=== PATIENT | male | born 1970 | race Caucasian/White ===

== ENCOUNTER 2016-10-22 12:23 | Inpatient (IN) | payer OTHER, MEDICARE ==
[~2016-10-22] VITALS: Ht 180.3 cm; Wt 91.3 kg
[~2016-10-22 12:23] MED LIST: BENADRYL ALLERG25 M1 PO; BENZTROPINE1 MG PO; DEPAKOTE ER 25250 MG PO; DEPAKOTE500 MG PO; FLUPHENAZINE HCL1 MG PO; LEVOTHROID0.125 MG PO; LEVOTHYROXIN0.125 MG PO; LEVOTHYROXINE0.1 M1 PO; OLANZAPINE15 MG PO; OLANZAPINE20 MG PO; PROLIXIN DEC25 MG/ML IM
--- NOTE | 2016-10-22 12:30 | NUR ---
PT BIBA FOR PSYCH EVAL. PT ON PEER FOR ODD BEHAVIOR. PER PD, PT WAS YELLING AT NEIGHBORS AND "THREATENING TO MURIEL" THEM. PT PRESENTS WITH DISORGANIZED AND RAMBLING SPEECH. PT REQUIRED FREQUENT REDIRECTION TO CHANGE HIS CLOTHES INTO BLUE SCRUBS. PT ASKING ABOUT HIS MEDICATIONS AND WHAT THE CORRECT DOSAGE IS. SECURITY AT BEDSIDE PT CHANGED INTO BLUE SCRUBS
--- NOTE | 2016-10-22 12:30 | NUR ---
ORINGINAL PEC PLACED IN LOCKED BOX.
--- NOTE | 2016-10-22 13:10 | NUR ---
DR BILLS AT BEDSIDE
--- NOTE | 2016-10-22 13:13 | ED PSYCHIATRIC COMPLAINT ---
History of Present Illness General Chief Complaint: Psychiatric Related Complaint Stated Complaint: BIBA ON PEER, PSYCH EVAL Source: patient, old records, EMS, police Exam Limitations: clinical condition Vital Signs & Intake/Output Vital Signs & Intake/Output Vital Signs Date Time Temp Pulse Resp B/P B/P Pulse O2 O2 Flow FiO2 Mean Ox Delivery Rate 10/22 1325 Room Air 10/22 1238 95.6 114 16 133/76 94 Room Air Allergies Coded Allergies: fluphenazine (DECREASES THRESHOLD FOR SEIZURES PER AN MD 10/22/16) haloperidol (SOB 10/22/16) Reconcile Medications Benztropine Mesylate (Benztropine) 1 MG TAB 1 TAB PO BID MENTAL HEALTH ( Reported) Divalproex Sodium (Depakote) 500 MG TCP 1 TAB PO BID seizures Divalproex Sodium ER (Depakote ER 250MG Tab) 250 MG TAB 3 TAB PO DAILY SEIZURES Levothyroxine Sodium 0.125 MG TAB 1 TAB PO DAILY THYROID (Reported) Olanzapine 15 MG TAB 1 TAB PO QPM MENTAL HEALTH Triage Note: PT BIBA ON PEER FOR PSYCH EVAL. PER PEER, PT WAS OUTSIDE OF HIS HOUSE YELLING AT THE NEIGHBORS. PER PD, PT HAD RAMBLING SPEECH, DISORGANIZED THOUGHTS AND SPEECH. Triage Nurses Notes Reviewed? yes Unable To Obtain Hx Due To: patient confusion Onset: Just prior to arrival Duration: constant, continues in ED Timing: recent history Severity: moderate, severe Associated Symptoms: impaired concentration HPI: Prior to admission patient was found outside his home threatening neighbors with confused speech agitation. He denies fever chills nausea vomiting diarrhea abdominal pain chest pain shortness breath headache dysuria rash bleeding suicidal ideation homicidal ideation. Past History Travel History Traveled to [place] past 21 day No Medical History Any Pertinent Medical History? see below for history Neurological: seizure EENT: NONE Cardiovascular: hypertension Respiratory: NONE Gastrointestinal: CHRONIC ABD PAIN Hepatic: NONE Renal: NONE Musculoskeletal: NONE Psychiatric: bipolar I disorder. 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 Hx Contributory? No Review of Systems Review of Systems Constitutional: Reports: no symptoms. EENTM: Reports: no symptoms. Respiratory: Reports: no symptoms. Cardiovascular: Reports: no symptoms. GI: Reports: no symptoms. Genitourinary: Reports: no symptoms. Musculoskeletal: Reports: no symptoms. Skin: Reports: no symptoms. Neurological/Psychological: Reports: see HPI, cognitive dysfunction, confusion. Hematologic/Endocrine: Reports: no symptoms. Immunologic/Allergic: Reports: no symptoms. All Other Systems: Reviewed and Negative Physical Exam Physical Exam General Appearance: well developed/nourished, mild distress Head: atraumatic Eyes: Bilateral: PERRL, EOMI. Ears, Nose, Throat: normal pharynx, normal ENT inspection, hearing grossly normal Neck: normal inspection, supple Respiratory: normal breath sounds Cardiovascular: regular rate/rhythm Gastrointestinal: soft, non-tender Extremities: normal range of motion Neurological/Psychiatric: no motor/sensory deficits, awake, agitated, alert, hood maker II-XII nml as tested Appearance/Memory/Insight: disheveled, impaired insight Behavoir/Eye Contact/Speech: cooperative, compulsive, increased rate of speech Thoughts/Hallucinations: no apparent hallucination Skin: intact, normal color, warm/dry SAD PERSONS Done? patient not suicidal Progress Differential Diagnosis: drug intoxication, drug overdose, drug withdrawal, electrolyte abnormality, hypoglycemia Plan of Care: Orders Procedure Date/time Status Regular Diet 10/22 L Active Intake & Output 10/22 1814 Active Patient Safety Monitor 10/22 1655 Active Admit to inpatient psych 10/22 1522 Active DEPAKOTE LEVEL 10/22 1321 Complete ED CRISIS PSYCH CONSULT 10/22 1316 Active Patient Safety Monitor 10/22 1259 Active URINE DRUG SCREEN FOR ER ONLY 10/22 1259 Complete ETHANOL 10/22 1259 Complete COMPREHENSIVE METABOLIC PANEL 10/22 1259 Complete CBC WITHOUT DIFFERENTIAL 10/22 1259 Complete Laboratory Tests 10/22/16 1321: Valproic Acid < 10.0 L, Serum Alcohol < 10.0 10/22/16 1321: Anion Gap 15, Estimated GFR > 60, BUN/Creatinine Ratio 13.0, Glucose 141 H, Calcium 9.5, Total Bilirubin 1.7 H, AST 37, ALT 92 H, Alkaline Phosphatase 54, Total Protein 7.1, Albumin 4.6, Globulin 2.5, Albumin/Globulin Ratio 1.8, CBC w Diff NO MAN DIFF REQ, RBC 4.77, MCV 91.9, MCH 31.3 H, RDW 13.9, MPV 7.3 L, Gran % 72.4, Lymphocytes % 16.4 L, Monocytes % 10.6 H, Eosinophils % 0.4, Basophils % 0.2, Absolute Granulocytes 4.5, Absolute Lymphocytes 1.0 L, Absolute Monocytes 0.7 H, Absolute Eosinophils 0, Absolute Basophils 0, PUBS MCHC 34.1, Urine Opiates Screen < 100.00, Methadone Screen < 40, Barbiturate Screen < 60, Ur Phencyclidine Scrn < 6.00, Amphetamines Screen < 100, U Benzodiazepines Scrn < 85, Urine Cocaine Screen < 50, Urine Cannabis Screen < 5.00 10/22/16 1311: Valproic Acid Cancelled Departure Departure Disposition: STILL A PATIENT Condition: Stable Clinical Impression Primary Impression: Schizoaffective disorder Qualifiers: Schizoaffective disorder type: bipolar Qualified Code: F25.0 - Schizoaffective disorder, bipolar type Referrals: ROSEMARY MENDEZ,ANNIA Cloud (PCP/Family) Departure Forms: Customer Survey General Discharge Information Psych Admission Note Psychiatric Admission: I have seen and evaluated AVTAR DEMPSEY. I have also reviewed all the pertinent lab results and diagnostic results. AVTAR DEMPSEY will be admitted to our inpatient Psychiatric unit for treatment and care.
--- NOTE | 2016-10-22 13:32 | NUR ---
RETURNED CALL FROM ANUSHA FITZGERALD, CANTEEN OPERATOR AT [facility] ABOUT THIS PT. LEFT MESSAGE FOR HER TO RETURN MY CALL. HER NUMBER [phone].
[2016-10-22 13:37] LABS: ABSOLUTE BASOPHIL COUNT 0 /CUMM (0.0-0.2); ABSOLUTE EOSINOPHIL COUNT 0 /CUMM (0.0-0.7); ABSOLUTE GRANULOCYTE CT 4.5 /CUMM (1.4-6.5); ABSOLUTE MONOCYTE COUNT 0.7 /CUMM (0.10-0.60); BASOPHIL % 0.2 % (0.0-2.0); EOSINOPHIL % 0.4 % (0-5); GRANULOCYTE % 72.4 % (42.2-75.2); HEMATOCRIT 43.8 % (42-52); MEAN CORPUSCULAR HGB 31.3 PG (27.0-31.0); MEAN CORPUSCULAR HGB CONC 34.1 G/DL (33.0-37.0); MEAN CORPUSCULAR VOLUME 91.9 FL (80.0-94.0); MEAN PLATELET VOLUME 7.3 FL (7.4-10.4); PLATELET COUNT 191 /CUMM (130-400); RBC DISTRIBUTION WIDTH 13.9 % (11.5-14.5); RED BLOOD CELL CT 4.77 /CUMM (4.70-6.10); WHITE BLOOD CELL COUNT 6.2 /CUMM (4.8-10.8)
--- NOTE | 2016-10-22 14:14 | NUR ---
ASSOCIATE SALES MANAGER AT BEDSIDE, BRINGING PATIENT TO CONSULTATION ROOM FOR EVAL
--- NOTE | 2016-10-22 14:21 | NUR ---
PT RETURNED TO STRETCHER FROM CRISIS EVAL
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
--- NOTE | 2016-10-22 15:40 | NUR ---
PT ANXIUS, ASKING SITTER IF HE CAN STAND UP. PT CALM AND COOPERATIVE AT THIS TIME. SITTER AT BEDSIDE.
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
--- NOTE | 2016-10-22 16:30 | NUR ---
PT SPEAKING WITH THIS RN ABOUT WHY HE IS HERE, NOT MAKING SENSE WITH HIS STATEMENTS AND GETTING TOO CLOSE TO THIS RN. PT ASKED TO REMAIN ON STRETCHER. SITTER AT BEDSIDE.
--- NOTE | 2016-10-22 17:43 | NUR ---
PT MOVED FROM SCHNEIDER D TO ROOM
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
--- NOTE | 2016-10-22 22:13 | NUR ---
Patient admitted to [facility] from ED. Patient delusional and paranoid, thinking [place] Patient held his hands up as to indicate he was not carrying weapons. Patient very disorganized in speech and thoughts. Patient evasive during assessment questioning. Patient speech was clear, however very tangential. Replying to answers with "you know" and nonsensical phrases. Patient currently denies pain. Patient is anxious toward prospects of long admission. Patient verbalizes his medications and again evasive about compliance. Patient is tangential with no insight. Denies AH/VH/SI. Looking forward to assisting Joe with mental health.
--- NOTE | 2016-10-23 05:43 | NUR ---
PT ADMITTED ON EVENINGS. PT BIZARRE,NON-SENSICAL. PT TOOK HS MEDS. PT SLEPT.
[2016-10-23 07:41] VITALS: BP 107/65
--- NOTE | 2016-10-23 09:39 | History & Physical ---
General Information and HPI History of Present Illness: 46M PMH bipolar disorder and seizure disorder admitted to [facility] with bizarre, violent, and unpredictable behavior. Patient has pressured speech, disorganized thoughts, is tangential, and floridly psychotic at this time, and is not able to give a cogent history. He also refuses physical exam. He appears agitated but otherwise well. Labs and vitals are normal. Allergies/Medications Allergies: Coded Allergies: fluphenazine (DECREASES THRESHOLD FOR SEIZURES PER AN MD 10/22/16) haloperidol (SOB 10/22/16) Home Med list Benztropine Mesylate (Benztropine) 1 MG TAB 1 TAB PO BID MENTAL HEALTH ( Reported) Divalproex Sodium (Depakote) 500 MG TCP 1 TAB PO BID seizures Divalproex Sodium ER (Depakote ER 250MG Tab) 250 MG TAB 3 TAB PO DAILY SEIZURES Levothyroxine Sodium 0.125 MG TAB 1 TAB PO DAILY THYROID (Reported) Olanzapine 15 MG TAB 1 TAB PO QPM MENTAL HEALTH Past History Travel History Traveled to [facility] past 21 day No Medical History Neurological: seizure EENT: NONE Cardiovascular: hypertension Respiratory: NONE Gastrointestinal: CHRONIC ABD PAIN Hepatic: NONE Renal: NONE Musculoskeletal: NONE Psychiatric: bipolar I disorder. 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 Psychosocial History Services at Home: None ETOH Use: 6 Illicit Drug Use: denies illicit drug use Review of Systems Review of Systems Constitutional: Reports: see HPI. EENTM: Reports: see HPI. Cardiovascular: Reports: see HPI. Respiratory: Reports: see HPI. GI: Reports: see HPI. Genitourinary: Reports: see HPI. Musculoskeletal: Reports: see HPI. Skin: Reports: see HPI. Neurological/Psychological: Reports: see HPI. Hematologic/Endocrine: Reports: see HPI. Immunologic/Allergic: Reports: see HPI. All Other Systems: Reviewed and Negative Exam & Diagnostic Data Last 24 Hrs of Vital Signs/I&O Vital Signs Date Time Temp Pulse Resp B/P B/P Pulse O2 O2 Flow FiO2 Mean Ox Delivery Rate 10/23 0741 95.3 95 107/65 10/22 1835 98.2 84 16 135/80 95 Room Air 10/22 1325 Room Air 10/22 1238 95.6 114 16 133/76 94 Room Air Intake & Output 10/23 1600 10/23 0800 10/23 0000 Intake Total 500 Output Total Balance 500 Intake, Oral 500 Physical Exam General Appearance Alert, Oriented X3, No Acute Distress, Patient refused physical exam Last 24 Hrs of Labs/Parth: Laboratory Tests 10/23/16 0625: TSH 4.470 H, Free T4 1.14, Thyroxine (T4) 9.5 10/22/16 1321: Valproic Acid < 10.0 L, Serum Alcohol < 10.0 10/22/16 1321: Anion Gap 15, Estimated GFR > 60, BUN/Creatinine Ratio 13.0, Glucose 141 H, Calcium 9.5, Total Bilirubin 1.7 H, AST 37, ALT 92 H, Alkaline Phosphatase 54, Total Protein 7.1, Albumin 4.6, Globulin 2.5, Albumin/Globulin Ratio 1.8, CBC w Diff NO MAN DIFF REQ, RBC 4.77, MCV 91.9, MCH 31.3 H, RDW 13.9, MPV 7.3 L, Gran % 72.4, Lymphocytes % 16.4 L, Monocytes % 10.6 H, Eosinophils % 0.4, Basophils % 0.2, Absolute Granulocytes 4.5, Absolute Lymphocytes 1.0 L, Absolute Monocytes 0.7 H, Absolute Eosinophils 0, Absolute Basophils 0, PUBS MCHC 34.1, Urine Opiates Screen < 100.00, Methadone Screen < 40, Barbiturate Screen < 60, Ur Phencyclidine Scrn < 6.00, Amphetamines Screen < 100, U Benzodiazepines Scrn < 85, Urine Cocaine Screen < 50, Urine Cannabis Screen < 5.00 10/22/16 1311: Valproic Acid Cancelled Assessment/Plan Assessment: 46M PMH bipolar disorder and seizure disorder admitted to [facility] with acute psychosis. Last seizure February 2015. Plan - Management by psychiatry - Continue Depakote for seizures - Ambulatory for DVT PPx - Please re-consult as necessary As Ranked By This Provider Problem List: 1. Acute psychosis 2. Seizure disorder 3. Bipolar 1 disorder Miscellaneous Miscellaneous Documentation Attending Case Discussed With: DIANA LYNN MD Primary Care Physician: ANNIA RILEY MD Patient sees these Specialists None Level of Patient Care: RASHEED Aaron
--- NOTE | 2016-10-23 11:59 | NUR ---
PT IS CALM, PLEASANT, MOOD STABLE WITH FULL RANGE AFFECT, DOES BECOME HYPERVERBAL, PRESSURED AND APPEARING PARANOID AROUND MEDICATION HOWEVER IS COMPLIANT (NOT ADMINISTERED YET D/T DR. LANDA WANTS TO MEET WITH HIM FIRST TO DISCUSS), PRESENT WITHIN THE COMMUNITY, VITAL SIGNS STABLE.
[2016-10-23 12:05] VITALS: BP 119/57
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
--- NOTE | 2016-10-23 15:36 | SOCIAL WORKER PROG NOTE PSYCH ---
Social Work Progress Note Progress Note Pt is highly paranoid, and irriatbel unable to complete social at this time.
--- NOTE | 2016-10-23 15:43 | SOCIAL WORKER PROG NOTE PSYCH ---
Social Work Progress Note Progress Note Pt was tangential and not focused, he had been agaitated, so did a quick check in. * Assessments linked to the treatment plan * Additions to or changes in the treatment plan along with reasons for same * Contacts with family and significant others in treatment, including family meeting(s) * Family attitudes * Community resource contacts and liaison with other clinicians/agencies
--- NOTE | 2016-10-23 15:43 | SOCIAL WORKER TX PLAN PSYCH ---
Treatment Plan - Please Document: - Evidence that there is ongoing collaboration between - the patient and the interdisciplinary team, - including the patient's active participation and - responsibility for engaging in the treatment regimen, - and that the treatment plan is individualized and - relevant to the patient's conditions. - Treatment plan should reflect documentation indicating - that all active therapeutic efforts are included. Strengths/Capabilities: The patient currently works at [employer], where he is followed for psychiatry. Physical Limitations (Interventions): no DSM5/PS Stressors/Medical Prob Diagnosis' (DSM 5, Stressors, Medical): F25 schizoaffective disorder medical: hx of seizure condition psychosocial: housing issues, problems with primary relationships Current GAF: 25 Treatment Team - Responsibilities of members of the treatment team include: - Medication Management- MD or CLINICAL TRAINING COORDINATOR - Medication Administration and Monitoring- Nurse - Group Therapy- Occupational Therapist - 1:1 Therapy,Disch Planning,family involvement-Finish Repair Worker
[2016-10-23 16:06] VITALS: BP 119/68
[2016-10-23 20:04] VITALS: BP 110/63
--- NOTE | 2016-10-24 03:57 | NUR ---
SLEPT WELL OVERNIGHT
[2016-10-24 07:57] VITALS: BP 98/62
--- NOTE | 2016-10-24 11:22 | SOCIAL WORKER SOCIAL HX PSYCH ---
Social History Basic Assessment Insurance Authorization: Insurance #1: Insurance name: [employer] Phone number: Policy number: [id number] Group number: Authorization number: Curr Source of Income/Entitlements: employment Primary Care Physician: Patient's PCP: ANNIA RILEY MD PCP's Present Problem: Met with pt for his social hx. Information was limited and pt would often answer qustions with "That's nonody's business" or respond with a nonsensical answer such as "You know the boxes on the shelves." Pt presents as disorganized and irritable. Primary Language? Trinidadian Language(s) Spoken At Home: Trinidadian Living Situation Rents or Owns Home? rents Other Living Arrangement: lives with his brother Feel Safe Where You Are Living Yes Feel Safe in Relationships? No Comments: "I don't feel safe because my brother keeps running away." Allergies - Coded Allergies: fluphenazine (DECREASES THRESHOLD FOR SEIZURES PER AN 10/22/16) haloperidol (SOB 10/22/16) Current Medications - Scheduled Medications Benztropine Mesylate (Benztropine) 1 MG TAB 1 TAB PO BID MENTAL HEALTH 30 Days (Reported) Entered as Reported by PRETTY BARLOW on 05/28/14 1248 Divalproex Sodium (Depakote) 500 MG TCP 1 TAB PO BID seizures 30 Days Prescribed by JAMES LIN MD on 05/31/14 Divalproex Sodium ER (Depakote ER 250MG Tab) 250 MG TAB 3 TAB PO DAILY SEIZURES 30 Days Prescribed by ZAHRAA KEYES on 03/22/15 Levothyroxine Sodium 0.125 MG TAB 1 TAB PO DAILY THYROID 30 Days (Reported) Entered as Reported by IRENE CASH MD on 03/20/15 2203 Olanzapine 15 MG TAB 1 TAB PO QPM MENTAL HEALTH #30 TAB Prescribed by KAM RUTHERFORD MD on 03/21/15 Past History Past Medical History Neurological: seizure EENT: NONE Cardiovascular: hypertension Respiratory: NONE Gastrointestinal: CHRONIC ABD PAIN Hepatic: NONE Renal: NONE Musculoskeletal: NONE Psychiatric: bipolar I disorder. 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 No Relationship w/Mother: but was very strict Relationship w/Father: but was very strict Any Sibling(s)? Yes Sibling's Gender(s)/Age(s): male Sibling 1: Relationship w/Sibling(s): My brother and I are not close Relationship w/Friends: I have a certain few Family Psych/Sub Abuse/Add Hx: "Doesen't everyone's family have mental health and substance abuse issues?" Abuse/Trauma History Trauma History/Current Trauma: "That's no one's business" Legal History Current Legal Status: none Pending Court Dates: denies Have you ever been arrested No Hx of Juvenile Legal Charges? No Hx of Adult Legal Charges? No Psychosocial History Primary Support System: friend Strengths/Capabilities: The patient currently works at [employer], where he is followed for psychiatry. Weaknesses: minimal insight intohis mental health Physical Limitations (Interventions): none reported Last Physical: 2016 History of Seizures? Yes Last Seizure: May 2016 History of Blackouts? No ADL Limitations: none reported [place]/Social/Peer Relations "I have a certain few" Meaningful Activities: drawing, art, reading Childhood Rastafari: no jain stated Current Jainism Affiliation: no jain stated Is Spirituality Important to You? "That's my business" Patient's Ethnicity: "That's my business" Cultural/Ethnic Issues: none reproted Are There Developmental Issues? No Milestones Achieved: fine motor, gross motor Psychiatric Treatment History Psych Treatment Inpatient Treatment Yes Outpatient Treatment Yes Location of Treatment [facility] Reason for Treatment Bipolar and seizure d/o Current Director Of Development And Marketing: [facility] Treatment of Prior Episodes: as above Diagnosis: bipolar Psychodynamic Issues: pt was unable to identify Risk Factors: chronic/serious med cond., high anxiety/distress, SA/MH hospitalized, lack of outcome concern, lives alone, male Substance Use/Abuse History Drug Use/Abuse Substance Used/Abused No History Substance Abuse Treatment Substance Abuse Treatment Inpatient Treatment No Outpatient Treatment No Sexual History Sexually Active No Education History Highest Level of Education: high school/GED, some college Highest Grade Completed: 12 Vocational Year Completed: 0 Number of College Years: 1 College Degree/Major: "Thats no one's business" Preferred Learning Style: unable to assess at this time HX of Learning Difficulties: difficulty reading, writing and with math Barriers to Learning: None reported Special Communication Needs: None reported Employment History Employment Employed Vocation/Occupational Hx: 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 of Jobs in Last 5 Years: 5 Attendance: Normal Performance: Good History Have You Been in The ? No Current Mental Status Problem List: 1. Bipolar 1 disorder 2. Schizoaffective disorder 3. Acute psychosis Mental Status Orientation: Confused Affect: Anxious, Angry, Labile Speech: Loud, Mumbled, Perseveration Neuro-vegetative: unable to assess at this time Appearance Appearance- Dress/Hygiene: Pt is wearing hospital gown and hygiene is poor- malodorous Behaviors Thought Process: Disorganized, Tangential Thought Content: Paranoid Memory: Impaired Insight: Poor SI/HI Risk Assessment Past Suicidal Ideation/Attempts Yes Current Suicidal Ideation/Att No Past Homicidal Ideation/Att: Yes Current Homicidal Ideation/Attempts No Degree of Intent: None, denies Danger To: denies Gravely Disabled: Inability, Lack of Insight, Poor Impulse Control, Poor Judgment Risk Factors: High Anxiety/Distress, SA/MH Hospitalization(s), Hx of violence, Lack of concern outcome, Male, Poor impulse control Lethality Ratin - Conclusion and Recommendations for treatment - and discharge planning Summary: Pt was admitted for psychosis and irrationatiol behavior
--- NOTE | 2016-10-24 12:03 | NUR ---
PT IS PRESENT WITHIN THE MILIEU, BIZARRE AND PACES @ TIMES, ATTENDED PLANNING MEETING THIS MORNING AND REPORTED + SLEEP/+MOOD YET CAN BECOME ANXIOUS AND IRRITABLE AT TIMES, IS MEDICATION COMPLIANT ALTHOUGH RESISTIVE AT TIMES.
[2016-10-24 12:08] VITALS: BP 104/63
--- NOTE | 2016-10-24 13:48 | SOCIAL WORKER PROG NOTE PSYCH ---
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 Then clarified, "lets get back to the reason you are here", I assured him I was a resource and support pt states he wanted me to know he had a duffle bag with his wallet and he left all of these belongings in his car. He showed me a yellow paper and was perseverating over what it said about his items that he had prior to coming into [facility]. Pt he stated again he rather take a nap, he then stated "where are we, I said [facility], and he stated [place]". I told pt to come to my office if he needed anything, and then we would meet again tomorrow.
[2016-10-24 16:14] VITALS: BP 108/61
[2016-10-24 19:41] VITALS: BP 114/66
--- NOTE | 2016-10-24 19:52 | CP SOUTH PROGRESS NOTE PSYCH ---
Psych (Inpt) Progress Note Progress Note Include the following elements, when applicable: Involvement in the active treatment of the patient with behavioral observations of the patient and the patient's response to the treatment. Review of the ongoing treatment process in the context of the treatment plan. Indication of how multi-disciplinary staff members are carrying out the treatment plan. Plans for future interventions and recommendations for revision of the treatment plan. Liaison with other physicians/providers. Progress Note: PSYCHIATRIST NOTE, 10/24/2016: I discussed this patient's slow progress thus far, current mental status, treatment and discharge planning with staff team today in the daily morning ITTM and also met with him again myself in individual session. Patient reported sleeping better/well last night and this was confirmed in the nursing overnight report. Patient feels he is "getting better" and there is clear though only partial improvement in his presenting gross disorganization/loosening of thought process and intense paranoia though he continues to scan the office during interview as if looking for something possibly threatening to him, but there is no evidence that he is actually seeing things that aren't actually there in the environment. Thus far, patient is accepting the higher prescribed dose of Zyprexa (up from 15mg to 20mg) and doesnot show evidence of daytime sedation or other side effects and denies feeling "dopey" or fatigued by current med regimen. Patient denies any side effects emerging after halving of Cogentin daily dose to 1mg and possibly some improvement in dry mouth; I will continue the benztropine taper (as it had been initiated while patient was on Prolixin/ Prolixin decanoate and not discontinued when he switched to Zyprexa PROCESS SERVER.
--- NOTE | 2016-10-24 20:44 | NUR ---
PT IS OFTEN IN PERIPHERY OF MILIEU, INTERACTING TO SOME EXTENT WITH STAFF BUT IN A MUCH MORE LIMITED WAY WITH. OFTEN BY SELF WHILE IN MILIEU, NOT INTERACTING MUCH UNLESS DIRECTLY ENGAGED. PT DISPLAYS SOME PARANOID THOUGHTS AND ABNORMAL BEHAVIORS AT TIMES. MOOD IS NOT STABLE, AFFECT IS EUTHYMIC, COMMUNICATION IS AT TIMES DISORGANIZED, AND APPETITE IS NORMAL. PT DENIES SI AT THIS TIME.
[2016-10-25 07:13] VITALS: BP 115/79
[2016-10-25 07:15] VITALS: BP 141/83
[2016-10-25 07:19] VITALS: BP 115/67
[2016-10-25 11:55] VITALS: BP 122/74
--- NOTE | 2016-10-25 14:44 | NUR ---
PT SPENDING A LITTLE MORE TIME OUT OF ROOM AND IN COMMUNITY. SLIGHTLY MORE SOCIAL WITH PEERS AND STAFF. PT ATTENDED GROUPS - SOMEWHAT BIZARRE BEHAVIOR IN GROUPS AT TINES DOES NOT MAKE SENSE. PT APPETITE GOOD. VS WNL. NO COMPLAINTS REPORTED.
--- NOTE | 2016-10-25 15:17 | SOCIAL WORKER PROG NOTE PSYCH ---
Social Work Progress Note Progress Note Pt reports that his brother sent him a letter stated to sell or buy him out of their shared condo, as of a month ago the brother Davie moved out, and according to Davie the house is quickly becoming dirty and not being taken care of, Davie states that as of October 30 if the light bill isn't paid his brother will return to a home without electricity. Joe is not totally aware of the situation, and as Davie states "Im probably the closest advocate he has but now there is a conflict of interest, due to the house". He states an Aunt may be available to be a support as well, and that Bernardino offered Micah a caser in and we will pursue that again prior to discharge. Met with Micah, he wants to shave, he feels better, is aware that he metw ith Dr. Kenney and mentioned the house and his brother. He is still paranoid, and whispering while communciating with me.
[2016-10-25 15:44] VITALS: BP 129/74
--- NOTE | 2016-10-25 16:54 | CP SOUTH PROGRESS NOTE PSYCH ---
Psych (Inpt) Progress Note Progress Note Include the following elements, when applicable: Involvement in the active treatment of the patient with behavioral observations of the patient and the patient's response to the treatment. Review of the ongoing treatment process in the context of the treatment plan. Indication of how multi-disciplinary staff members are carrying out the treatment plan. Plans for future interventions and recommendations for revision of the treatment plan. Liaison with other physicians/providers. Progress Note: PSYCHIATRIST NOTE, 10/25/2016: I discussed this patient's slow progress to date, current mental status, treatment and discharge planning with staff team today in the daily morning ITTM and also met with him again myself in individual session. Patient slept well again last night but there is some concern amongst nursing staff that he had been somewhat more paranoid; I increased daily dose of Zyprexa, adding 5mg in the morning (daily total of 25mg). Serum valproic acid level this morning was 73.7mcg/ml; patient agreed to my increasing daily dose slightly from 1,250mg to 1,500mg/day, starting tonight; we will repeat level in AM 10/28/2016. Patient's expressed thought and organization of thinking seemed better to me today, and thought disorder improving in general; the patient himself appeared to notice and be pleased with this improvement in his ability to communicate which had been so impaired upon presentation to [facility]. Patient denied any side effects related to halving dose of Cogentin and "possibly" some improvement in dry mouth ; he agreed to my cutting Cogentin dose in half once again, to 0.5mg/day, starting tomorrow, 10/26/2016.
[2016-10-25 20:00] VITALS: BP 138/66
--- NOTE | 2016-10-25 20:13 | NUR ---
PT HAS BEEN QUIET AND KEEPS TO HIMSELF OTHER THAN WHEN VITALS ARE TAKEN. HE SOMETIMES CAN BE OBSERVED WALKING AROUND BLANKLY OR APPEARING TO LOOK LOST. PT HAS NO ISSUES ON THE UNIT AND DOES NOT APPEAR TO BE IN ANY DITRESS, BUT HIS TONE CAN CHANGE QUICKLY WHEN TALKING PT DENIES THOUGHTS OF SI AT THIS TIME.
--- NOTE | 2016-10-26 04:01 | NUR ---
Slept. No issues or complaints.
[2016-10-26 07:46] VITALS: BP 117/67
[2016-10-26 12:17] VITALS: BP 101/72
--- NOTE | 2016-10-26 13:14 | NUR ---
Patient is present in the community, compliant with medication and group therapies. Patient pace along the hallways at will, continues with bizzare behavior, disorganized thought with vague presentation. patient report good night sleep and appetite, mood is stable/irritable, denies thought of self-harm, AH/VH and no thought of harming someone else.
--- NOTE | 2016-10-26 13:15 | CP SOUTH PROGRESS NOTE PSYCH ---
Psych (Inpt) Progress Note Progress Note Include the following elements, when applicable: Involvement in the active treatment of the patient with behavioral observations of the patient and the patient's response to the treatment. Review of the ongoing treatment process in the context of the treatment plan. Indication of how multi-disciplinary staff members are carrying out the treatment plan. Plans for future interventions and recommendations for revision of the treatment plan. Liaison with other physicians/providers. Progress Note: Pt notes that he should not be hospitalized. Bizzare disorganized thoughts uttered when pacing around the room. Feels that has new cough which he attributes to ?cogentin or levothy. Denies SI or HI. Denies any psychotic sx. Vital Signs Date Time Temp Pulse Resp B/P B/P Pulse O2 O2 Flow FiO2 Mean Ox Delivery Rate 10/26 1217 92 101/72 10/26 0746 96.8 90 117/67 10/26 1999 97.8 99 138/66 10/25 1544 93 129/74 Current Medications Sig/Duncan Start time Last Medication Dose Route Stop Time Status Admin Benztropine Mesylate 0.5 MG Q4P PRN 10/25 1545 AC PO Benztropine Mesylate 1 MG 10/23 220 DC 10/24 PO 2227 Cyanocobalamin 1,000 MCG 10/25 08 AC 10/26 PO 0832 Divalproex Sodium 1,000 MG 10/25 AC 10/25 PO 1927 Divalproex Sodium 750 MG 10/24 DC 10/24 PO 1955 Divalproex Sodium 500 MG 10/24 08 AC 10/26 PO 0832 Levothyroxine Sodium 0.125 MG DAILY AC 10/23 07 AC 10/26 PO 0623 Olanzapine 5 MG 10/26 08 AC 10/26 PO 0832 Olanzapine 2.5 MG Q6P PRN 10/25 1545 AC PO Olanzapine 2.5 MG Q6P PRN 10/25 1515 DC PO Olanzapine 5 MG Q6H PRN 10/24 1030 DC 10/25 PO 0741 Olanzapine 20 MG 10/23 AC 10/25 PO 2128 Topiramate 25 MG BID 10/22 2199 AC 10/26 PO 0832 Laboratory Tests 10/25 06 Chemistry Sodium (137 - 145 mmol/L) 142 Hemoglobin A1c (4.2 - 5.8 %) 5.8 Total Bilirubin (0.2 - 1.3 mg/dL) 0.4 Direct Bilirubin (< 0.4 mg/dL) 0.2 AST (17 - 59 U/L) 20 ALT (21 - 72 U/L) 55 Alkaline Phosphatase (< 127 U/L) 65 Total Protein (6.3 - 8.2 g/dL) 6.1 L Albumin (3.5 - 5.0 g/dL) 3.7 TSH (0.270 - 4.200 uIU/mL) 4.860 H Toxicology Valproic Acid (50 - 120 ug/mL) 73.7 MSE Appears as stated age. Minimally cooperative, staring eye contact. Rapid rate speech, nl volume and prosody. +++psychomotor agitation; pacing. Mood OK Affect very irritable, bizzare, inappropriate, liable. Bizzare and disorganized thought process. Denies SI or HI. Does not appear to be responding to internal stimuli. Denies AVHs, + paranoia around meds. I/J: poor A/P: Pt with schizoaffective disorder with continued disorganization. - Pt seems to have alliance with Dr. Kenney. - No changes in medications at this time. Encouraged PRNS.
[2016-10-26 16:13] VITALS: BP 109/69
[2016-10-26 19:47] VITALS: BP 121/68
--- NOTE | 2016-10-26 20:30 | NUR ---
PT IS VISIBLE ON UNIT, MOSTLY STAYING TO HIMSELF AND PACING. MINIMAL INTERACTION WITH PEERS AND STAFF. COOPERATIVE AND COMPLIANT WITH STAFF. AT TIMES PT APPEARS PARANOID AND ANXIOUS WHEN CONVERSING WITH STAFF. NO COMPLAINTS OR SI REPORTED. PT HAS AN ANXIOUS MOOD AND CONSTRICTED AFFECT.
--- NOTE | 2016-10-26 21:10 | NUR ---
spoke with patient for several minute in the kitchen. He did not seem paronoid. He tried to make a sensible conversation but frequently substituted similar sounding word which made it difficult to follow his thoughts. For example he wanted to use the phrase "advance directive" saying instead advanced degree. When questioned further he changed it to advanced derivative. I was able to discern from the rest of his speech what he really meant and when I corrected him he agreed with my interpretation.
--- NOTE | 2016-10-27 05:43 | NUR ---
PT CONTINUES BIZARRE, TANGENTIAL. PT HAS PROBABLE CAUSE REQUEST IN FROM 10/22 AT 2200. PT SLEPT.
[2016-10-27 08:08] VITALS: BP 98/57
--- NOTE | 2016-10-27 11:22 | CP SOUTH PROGRESS NOTE PSYCH ---
Psych (Inpt) Progress Note Progress Note Include the following elements, when applicable: Involvement in the active treatment of the patient with behavioral observations of the patient and the patient's response to the treatment. Review of the ongoing treatment process in the context of the treatment plan. Indication of how multi-disciplinary staff members are carrying out the treatment plan. Plans for future interventions and recommendations for revision of the treatment plan. Liaison with other physicians/providers. Progress Note: Pt notes that is "much better than before." He feels like all questions about sx are "very old conversation at this time." He wants to leave tomorrow. Feels that nothing wrong with him. Very bizzare, tangential, odd and evasive. Current Medications Sig/Duncan Start time Last Medication Dose Route Stop Time Status Admin Benztropine Mesylate 0.5 MG Q4P PRN 10/25 1545 AC PO Cyanocobalamin 1,000 MCG 10/25 0800 AC 10/27 PO 0900 Divalproex Sodium 1,000 MG 10/25 AC 10/26 PO 193 Divalproex Sodium 500 MG 10/24 0800 AC 10/27 PO 0900 Levothyroxine Sodium 0.125 MG DAILY AC 10/23 0700 AC 10/27 PO 0635 Olanzapine 5 MG 10/26 0800 AC 10/27 PO 0900 Olanzapine 2.5 MG Q6P PRN 10/25 1545 AC PO Olanzapine 20 MG 10/23 220 AC 10/26 PO 2158 Topiramate 25 MG BID 10/22 220 AC 10/27 PO 0900 Laboratory Tests 10/25 0643 Chemistry Sodium (137 - 145 mmol/L) 142 Hemoglobin A1c (4.2 - 5.8 %) 5.8 Total Bilirubin (0.2 - 1.3 mg/dL) 0.4 Direct Bilirubin (< 0.4 mg/dL) 0.2 AST (17 - 59 U/L) 20 ALT (21 - 72 U/L) 55 Alkaline Phosphatase (< 127 U/L) 65 Total Protein (6.3 - 8.2 g/dL) 6.1 L Albumin (3.5 - 5.0 g/dL) 3.7 TSH (0.270 - 4.200 uIU/mL) 4.860 H Toxicology Valproic Acid (50 - 120 ug/mL) 73.7 Vital Signs Date Time Temp Pulse Resp B/P B/P Pulse O2 O2 Flow FiO2 Mean Ox Delivery Rate 10/27 0808 95.7 96 98/57 10/26 1947 92 121/68 10/26 1613 76 109/69 10/26 1217 92 101/72 MSE Appears as stated age. Minimally cooperative, staring eye contact. Rapid rate speech, nl volume and prosody. +psychomotor agitation; pacing and moving arond in bed. Mood much better Affect very irritable, bizzare, inappropriate, liable. Bizzare and disorganized thought process. Denies SI or HI. Does not appear to be responding to internal stimuli. Denies AVHs, + paranoia around meds. I/J: poor A/P: Pt with schizoaffective disorder with continued disorganization and thought disorder. - Pt seems to have alliance with Dr. Kenney. - Probate filed on 10/22. - No changes in medications at this time. Encouraged PRNS.
[2016-10-27 12:21] VITALS: BP 126/73
--- NOTE | 2016-10-27 13:20 | NUR ---
patient presents as guarded, watchful, minimal interaction with staff and peers, attendeding groups, tangential but more organized and goal directed. Patient focused on d/c tomorrow.
[2016-10-27 16:03] VITALS: BP 97/61
[2016-10-27 19:51] VITALS: BP 124/71
[2016-10-27 19:52] VITALS: BP 126/76
--- NOTE | 2016-10-27 22:03 | NUR ---
PT IS SLIGHTLY WITHDRAWN/ISOLATIVE, SPENDING TIME IN PERIPHERY, NOT INTERACTING WITH PEERS, AND LIMITED INTERACTION WITH STAFF. PT IS OFTEN PACING THE UNIT OR STAYING IN PT ROOM SLEEPING. MOOD IS NOT STABLE, CAN BECOME AGITATED AT TIMES, APPEARS ANXIOUS, AFFECT IS FLAT/CONSTRICTED, APPEARS TO HAVE PARANOID IDEAS AND ABSTRACT THOUGHTS, COMMUNICATION IS SLIGHTLY DISORGANIZED, AND APPETITE IS NORMAL. PT DENIES SI AT THIS TIME.
--- NOTE | 2016-10-28 04:59 | NUR ---
PT CONTINUES BIZARRE, TANGENTIAL, AND ODDLY RELATED. PT WITH PROBABLE CAUSE REQUEST SUBMITTED ON 10/22/16 AT 2200.
[2016-10-28 07:58] VITALS: BP 110/68
--- NOTE | 2016-10-28 11:21 | CP SOUTH PROGRESS NOTE PSYCH ---
Psych (Inpt) Progress Note Progress Note Include the following elements, when applicable: Involvement in the active treatment of the patient with behavioral observations of the patient and the patient's response to the treatment. Review of the ongoing treatment process in the context of the treatment plan. Indication of how multi-disciplinary staff members are carrying out the treatment plan. Plans for future interventions and recommendations for revision of the treatment plan. Liaison with other physicians/providers. Progress Note: PSYCHIATRIST NOTE, 10/28/2016: I discussed this patient's slow progress to date, current mental status, treatment and discharge planning with staff team today in the daily morning ITTM and also met with him again myself in individual session. Night report notes patient as "bizarre and tangential." He has been taking his medications and valproic acid level this morning was up to 96.6mcg/ml following increase in dose from 1,250mg to 1,500mg/day over the weekend. He had not required a PRN of Zyprexa until this morning; I have increased AM dose from 5mg to 10mg, starting tomorrow morning, 10/29/2016. Patient's "3-day paper" was to come due at 5pm this afternoon. I spoke with him about my opinion that he was not yet ready for discharge and I did not want to have to petition the local probate court for a hearing on this matter; I suggested to patient that he might rescind his current "paper" and then submit a second one which would result in his release on 2016, unless he takes that paper back or I still believe his discharging on that date that he is gravely disabled. Patient did later rescind the current "paper " and submitted another, demonstrating an adequate understanding of what we had just spoken about. He was not as loose and disorganized in expressed thought today as he had been when I last spoke with him on 10/25/2016. He noted that when he thinks that others are "being rude" to him it makes him angry and his thoughts to race and become confused.
[2016-10-28 12:29] VITALS: BP 109/68
--- NOTE | 2016-10-28 12:32 | NUR ---
PT WAS IRRITABLE AND AGITATED THIS MORNING. HE WAS RAMBLING DURING GROUP AND DIFFICULT TO REDIRECT. HE WAS INITIALLY RESISTIVE TO TAKING A PRN BUT WITH ENC HE DID. PT APPEARED CALMER AFTER PRN MEDS. PT MET WITH DR LANDA AND AGREED TO RESCIND HIS REQUEST TO LEAVE. PT THEN PUT IN A NEW REQUEST FOR TERMINATION. DR LANDA AWARE. PT DID DENY SUICIDAL THOUGHTS WHEN ASKED
--- NOTE | 2016-10-28 15:50 | SOCIAL WORKER PROG NOTE PSYCH ---
Social Work Progress Note Progress Note Pt is agreeable to having his brother coming in, "he needs to let me talk though , and not blame me, Micah this and Micah that". He is also open to having a adult protective caseworker and referral to [facility] services, I spoke with [place] crisis from [facility] and they state he is out of their catchment area, and therefore its challenge to serve him, when he lived in [place] he had been trell there for years, they do feel a adult protective caseworker would be helpful, at baseline he is prideful and sometimes minimizes his symptoms, more recenlty and since his brother moved out it is a struggle for him to remin grounded and stable.
[2016-10-28 16:23] VITALS: BP 100/58
[2016-10-28 19:58] VITALS: BP 100/65
--- NOTE | 2016-10-28 22:50 | NUR ---
Pt is out in the community during change of shift mood is stable no behavioral issues noted during the day. Pt interacts with he's peers appropriately, compliant and cooperative with the staff. Will continue to monitor the pt overnight.
--- NOTE | 2016-10-28 23:11 | NUR ---
PT HAS BEEN SLIGHTLY DISORGANIOIZED AND CONFUSED WHEN TALKING TO STAFF. HE IS SOMETIMES UNSURE OF WHO THE STAFF IS AND WHO HIS PEERS ARE. MANY TIMES HE HAS TO BE REDIRECTED. PT CAN SOMETIMES GET IRRITATED WHEN STAFF ASKS HIM QUESTIONS DURING VITALS OR WHEN STAFF CORRECTS HIM. PT DENIES SI AT THIS TIME.
--- NOTE | 2016-10-29 05:41 | NUR ---
PATIENT SLEPT FROM 0015 TO 0345, THEN IN STAGES, AWAKE FOR GOOD AT 0540; HE SAT IN LOUNGE AT 0345 BRIEFLY, IRRITABLE, SENTENCES SLIGHTLY DISCONNECTED BUT APPEARED ORIENTED, REFUSED PRN ZYPREXA, RETURNED TO LIE DOWN.
[2016-10-29 08:04] VITALS: BP 109/48
[2016-10-29 12:42] VITALS: BP 102/53
--- NOTE | 2016-10-29 13:16 | SOCIAL WORKER PROG NOTE PSYCH ---
Social Work Progress Note Progress Note Spoke with Davie and he can participate in a family session at 1pm. * Assessments linked to the treatment plan * Additions to or changes in the treatment plan along with reasons for same * Contacts with family and significant others in treatment, including family meeting(s) * Family attitudes * Community resource contacts and liaison with other clinicians/agencies
--- NOTE | 2016-10-29 13:41 | NUR ---
PT HAS BEEN IN THE [place]IEU SOME OF THE DAY. HE MADE NO GOAL TODAY SINCE HE WAS NOT IN PLANNING MEETING. IN FOCUS GROUP, IT WAS REPORTED THAT PT WAS MAKING NASTY COMMENTS TO STAFF AND PEERS, AND WAS ACTING PARANOID TOWARDS GROUPS. PT HAS NOT BEEN IN ANY OTHER GROUPS. PT DENIES THOUGHTS OF HURTING SELF WHEN ASKED.
--- NOTE | 2016-10-29 15:28 | CP SOUTH PROGRESS NOTE PSYCH ---
Psych (Inpt) Progress Note Progress Note Include the following elements, when applicable: Involvement in the active treatment of the patient with behavioral observations of the patient and the patient's response to the treatment. Review of the ongoing treatment process in the context of the treatment plan. Indication of how multi-disciplinary staff members are carrying out the treatment plan. Plans for future interventions and recommendations for revision of the treatment plan. Liaison with other physicians/providers. Progress Note: The patient is a 46-year-old white man who was admitted on 10/22/16. He carries the diagnosis schizoaffective disorder. Case and treatment plan discussed in team meeting. Staff reports that the patient rescinded his three-day paper and then put in another three-day paper. Described as paranoid, irritable, loud and pressured. Medication list reviewed. Patient seen at 1:56 PM. He has a mustache and his mcelroy is unshaven. When I asked his date of to confirm identity, he was guarded. He is dressed in a blue scrub shirt and regular pants. He states he feels "much better than when I came, less drowsy, much more focused." States he is tolerating medications. States he is feeling more adjusted. Affect is calm and blunted. Thinking seems slightly disorganized and he is a little suspicious. Describes mood as "within reason." Rates depressed mood 6/10 and anxiety 5/10. Denies feeling hopeless, helpless, worthless or guilty. Denies suicidal and homicidal ideation. Reports he heard voices when he was a little boy. Denies visual hallucinations. When asked if anyone is out to harm him. he responded "only the neighbors, only threats, only loud noises, only calling the police for no reason." States that his sleep is now much better than it was. Reports he is now sleeping 8-10 hours a night instead of 6-8 hours a night. I asked about his appetite and he stated "okay, I'm paying for." I asked him to to be more specific about his intake, and he replied that he is having 3 meals a day. Describes energy as "bright and energetic." He commented "I don't need nurse and a doctor for this." The patient is eager for discharge. IMPRESSION: Slow progress. Continue present treatment plan.
--- NOTE | 2016-10-29 15:30 | SOCIAL WORKER PROG NOTE PSYCH ---
Social Work Progress Note Progress Note Pt agrees with family session, and appears to be more focused and exhibiting clear thoughts, he stated at these family meetings he wants to make sure his brother "doesn't just say Micah this and Micah that, sometimes he acts like he is a Dr, and denies he has his own mental illness". I confirmed the meeting would be supportive and helpful, pt does not feel like " we need to larry each other to find a solution" in regards to the home. Previous to him living there he was living independently, and reports he could use help with bills, "Im not online but have a check book", explored case management services as a means to help him get organized. When asked how he feels "better", he can still get lost in his thoughts, overall there is indication that some improvements are being made.
[2016-10-29 16:07] VITALS: BP 109/62
[2016-10-29 19:52] VITALS: BP 117/70
--- NOTE | 2016-10-29 22:25 | NUR ---
PT IS OFTEN IN MILIEU, BUT STAYING IN PERIPHERY. LIMITED INTERACTION WITH OTHERS, THOUGH WILL INTERACT WHEN DIRECTLY ENGAGED. SEEMS TO BE PARANOID IN THOUGHT AND APPEARS HIGHLY ANXIOUS WHEN COMMUNICATING WITH PT. MOOD IS NOT ENTIRELY STABLE, NERVOUSLY PACING THE UNIT BY SELF, AFFECT APPEARS FLAT/CONSTRICTED, COMMUNICATION IS SLIGHTLY DISORGANIZED, AND APPETITE IS NORMAL. PT DENIES SI AT THIS TIME.
--- NOTE | 2016-10-30 04:05 | NUR ---
OOB X2 TO BATHROOM, SLEPT WELL.
[2016-10-30 07:55] VITALS: BP 121/62
[2016-10-30 12:16] VITALS: BP 113/67
--- NOTE | 2016-10-30 13:13 | NUR ---
PT IS COMPLIANT AND COOPERATIVE. MOOD IS STABLE WITH A FLAT AND EUTHYMIC AFFECT. PT APPEARS GUARDED AND PARANOID- ASKING IF WE ARE EXAMINING HIM AND WHAT HE HAS TO PAY FOR, ETC. PT NOTED TO BE SPEAKING IN THIRD PERSON AT TIMES. PT VASCILLATES BETWEEN BEING ON THE UNIT AND BEING IN HIS ROOM. PT HAS MINIMAL INTERACTION WITH PEERS AND STAFF. PT IS ATTENDING GROUPS. VITALS ARE STABLE, APPETITE IS GOOD.
--- NOTE | 2016-10-30 13:42 | SOCIAL WORKER PROG NOTE PSYCH ---
Social Work Progress Note Progress Note Follow up appointment with Micah Ahmadi APRN at [facility] 11/05/16 at 1:30p Case management with [facility] intake 2pm on 11/07/16 Pt is agreeable for now with the referrals, he has been known to reject services int he past. Again, due to minimizing his mental health condition, and not truly understanding the benefit they could have. I reviewed the intent of having someone be there to help with bill paying and teaching him some ways to manage his household, as it was he was independent for many years. He would benefit from nursing services as well, less moving parts and responsibilities may help alleviate stress.
[2016-10-30 16:12] VITALS: BP 119/73
[2016-10-30 20:05] VITALS: BP 100/68
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
--- NOTE | 2016-10-30 21:13 | NUR ---
PT IS VISIBLE ON UNIT, MOSTLY ROAMING COMMUNITY AND STAYING TO HIMSELF. PT HAS MINIMAL INTERACTION WITH PEERS, COOPERATIVE WITH STAFF. AT TIMES PT HAS AN IRRTIABLE EDGE AND WILL MUMBLE STATEMENTS UNDER HIS BREATH. OVERALL COMPLIANT WITH STAFF. NO COMPLAINTS OR SI REPORTED. PT HAS AN ANXIOUS MOOD AND IRRITABLE AFFECT.
--- NOTE | 2016-10-31 07:08 | NUR ---
PATIENT SLEPT ALL NIGHT.
[2016-10-31 08:24] VITALS: BP 110/66
[2016-10-31 12:24] VITALS: BP 113/68
--- NOTE | 2016-10-31 13:06 | NUR ---
PT REMAINS PARANOID WITH A BIZARRE PRESENTATION. PT REFERS TO SELF IN THIRD PERSON AT TIMES. PT REMAINS PARANOID ABOUT BEING CHARGED MONEY FOR EVERYTHING AND STATES THAT VARIOUS PEOPLE ARE "EXAMINING" HIM. PT CAN BE IRRITABLE AT TIMES. PT NOTED TO BE PACING UNIT OFTEN- WATCHING WHAT OTHERS ARE DOING. PT DENIES SI AT THIS TIME, NO COMPLAINTS OFFERED. PT HAS MINIMAL INTERACTION WITH OTHERS WHEN ON UNIT. PT IS ATTENDING SOME GROUPS. VITALS ARE STABLE, APPETITE IS GOOD.
--- NOTE | 2016-10-31 13:10 | SOCIAL WORKER PROG NOTE PSYCH ---
Social Work Progress Note Progress Note Pts brother Davie was present for a family session, pt states he is open to selling his condo, and is comfortable moving into his own place. Pt is disorganzied and was doing his best to be heard and be assertive. Pt handled the family session well, and was open to having clincial services and [facility] case management in place upon discharge. Pt exhibits being pressured, word salad and has spotty recognition of what is being said, although he is clear at times. Pt agrees for discharge 11/06/16.
--- NOTE | 2016-10-31 15:49 | CP SOUTH PROGRESS NOTE PSYCH ---
Psych (Inpt) Progress Note Progress Note Include the following elements, when applicable: Involvement in the active treatment of the patient with behavioral observations of the patient and the patient's response to the treatment. Review of the ongoing treatment process in the context of the treatment plan. Indication of how multi-disciplinary staff members are carrying out the treatment plan. Plans for future interventions and recommendations for revision of the treatment plan. Liaison with other physicians/providers. Progress Note: PSYCHIATRIST NOTE (FAMILY MEETING), 10/31/2016: I discussed this patient's slow progress to date, current mental status, treatment and discharge planning with staff team today in the daily morning NELSY and Anastasiia Oconnell LCSW, and I met with patient together in individual session to discuss his latest "3 day paper" (which he rescinded with the expectation that he would be discharged by 11/06/2016) and then later with his brother Davie in a family session. Brother did appear to be appropriately caring and concerned about patient's welfare, safety and future well-being and security. While reiterating his wish and intention to either sell their jointly owned condo or be "bought out of it" by patient he promised that he was not pushing to have this happen "immediately" and would await his brother acquiring another residence to which the latter would be able to relocate prior to the sale of their property and that they would share equally in any/all profits from that sale. For his part, patient expressed his acceptance of the above and added that things had not been working out between brothers while they were living together (brother moved out a few weeks prior to patient's admission here ) due to "the different ways we do things...pay the bills...take care of the place," etc. If anything, patient appeared more coherent and rational in the family meeting than he had heretofor, and he showed no evidence of decompensation following the conclusion of the meeting or later in the afternoon ; he actually appeared relieved by "having things clear...clearing the air" with brother. Patient agreed to add case management services from [facility] to his alf ongoing treatment with [facility], as well as being willing to entertain additional services such as visiting nurse, home health aide, etc. (?[employer], ?social science teacher, ?social activities).
[2016-10-31 16:08] VITALS: BP 115/57
[2016-10-31 19:49] VITALS: BP 124/74
--- NOTE | 2016-10-31 22:25 | NUR ---
PT IS ISOLATIVE AND WITHDRAWN, SPENDING THE MAJORITY OF THE TIME PACING ABOUT UNIT AND AT TIMES TALKING TO SELF. WILL INTERACT WITH OTHERS WHEN DIRECTLY ENGAGED. SLIGHTLY IRRITABLE AT TIMES, THOUGH THIS PASSES QUICKLY. MOOD IS STABLE, AFFECT IS FLAT/CONSTRICTED, COMMUNICATION IS DISORGANIZED AT TIMES - JUMPING FROM SUBJECT TO SUBJECT- TANGENTIAL, HYPERVERBAL AT TIMES WHEN ENGAGED. APPETITE IS NORMAL. PT DENIES SI AT THIS TIME.
--- NOTE | 2016-11-01 07:41 | NUR ---
PT CONTINUES BIZARRE, TANGENTIAL, DISORGANIZED. PT ON PERIPHERY. PT SLEPT.
[2016-11-01 07:54] VITALS: BP 99/5
--- NOTE | 2016-11-01 12:36 | SOCIAL WORKER PROG NOTE PSYCH ---
Social Work Progress Note Progress Note Pt found pacing, distracted and slightly irritable. Only mentions the Dr wants to see him tonight, and I concurred yes, you will be seen daily while inpatient, and then he mentions discharge on the . I told patient nothing has changed, and he stated ok, good, the . Pt continues to have disorganized thoughts. * Contacts with family and significant others in treatment, including family meeting(s) * Family attitudes * Community resource contacts and liaison with other clinicians/agencies
[2016-11-01 12:38] VITALS: BP 120/77
--- NOTE | 2016-11-01 13:56 | NUR ---
PT IS STABLE WITH FLAT AFFECT. PT IS CURRENTLY IN GROUP AND HAS BEEN ATTENDING GROUPS ALL MORNING. A LOT MORE APPROPRIATE TO THE UNIT, SOCIALIZING WITH PEERS. CALM, COOPERATIVE, COMLPIANT. DOES NOT DISPLAY ANY SIGNS OF PARANOIA ON THIS AM SHIFT. VS ARE STABLE AND DENIES ANY SI/HI TO THIS MHW.
[2016-11-01 15:54] VITALS: BP 112/72
--- NOTE | 2016-11-01 18:49 | CP SOUTH PROGRESS NOTE PSYCH ---
Psych (Inpt) Progress Note Progress Note Include the following elements, when applicable: Involvement in the active treatment of the patient with behavioral observations of the patient and the patient's response to the treatment. Review of the ongoing treatment process in the context of the treatment plan. Indication of how multi-disciplinary staff members are carrying out the treatment plan. Plans for future interventions and recommendations for revision of the treatment plan. Liaison with other physicians/providers. Progress Note: PSYCHIATRIST NOTE, 11/01/2016: I discussed this patient's slow progress to date, current mental status, treatment and discharge planning with staff team today in the daily morning ITTM and also met with patient again myself in individual session. Patient's degree of coherence continues to slowly improve on a daily basis; though tangentiality, looseness and near "word salad" of nonsequitors continues to intrude, patient has shown an ability to refocus back to his original point/narrative much more readily and appears to notice and be pleased with this himself. We discussed yesterday's meeting with his brother; patient continues to be concerned/worried about brother's intentions vis-a-vis their jointly owned condominium but expressed his willingness to sell the property and move to a new residence in the near future, though obviously not immediately; he emphasized several times during our session today that he would like one more meeting with his brother prior to discharge next week. Patient is still on a total of Zyprexa, 30mg/day but has not required any PRN's of same since the beginning of the week (10/28/2016 ). He is tolerating upward titration on dose of Depakote ER to 1,500mg/day well to date with serum valproic acid cocentration now stable in optimal range at 91.7mcg/ml as of this morning.
[2016-11-01 19:55] VITALS: BP 119/67
--- NOTE | 2016-11-01 21:23 | NUR ---
PT IS COOPERATIVE WITH STAFF AND PEERS, AND COMPLINAT WIHT UNIT RULES. PT IS OFTEN IN UNIT PERIPHERY, PACING ABOUT AND AT TIMES TALKING TO SELF. SEEMS ANXIOUS. MOOD IS STBALE, AFFECT IS FLAT/CONSTRICTED, COMMUNICATION IS DISORGANZIED AND PRESSURED AT TIMES. PT CAN AT TIMES BE IRRITABLE. APPETITE IS NORMAL. PT DENIES SI AT THIS TIME.
[2016-11-02 08:10] VITALS: BP 117/66
[2016-11-02 12:12] VITALS: BP 116/71
--- NOTE | 2016-11-02 14:13 | NUR ---
IN ROOM MOST OF THE SHIFT. TALKS IN DISORGANIZED TANGENTIAL FRAGMENTS FOCUSING ON DISCHARGE NEXT WEEK. FEELS IF HE IS NORMAL IF NOT BETTER THAN SOME. MOOD IS STABLE, EUTHYMIC AFFECT. DENIED THOUGHTS OF SELF HARM WHEN ASKED.
--- NOTE | 2016-11-02 15:54 | CP SOUTH PROGRESS NOTE PSYCH ---
Psych (Inpt) Progress Note Progress Note Include the following elements, when applicable: Involvement in the active treatment of the patient with behavioral observations of the patient and the patient's response to the treatment. Review of the ongoing treatment process in the context of the treatment plan. Indication of how multi-disciplinary staff members are carrying out the treatment plan. Plans for future interventions and recommendations for revision of the treatment plan. Liaison with other physicians/providers. Progress Note: The patient is a 46 years old, single male, with schizoaffective disorder and acute exacerbation in the context of noncompliance with medication. According to the nursing staff he has been compliant with the medication on the unit, his interaction with staff is appropriate, he mostly keeps to himself and has limited interaction with his peers. We attempted to interview the patient in the office individually but he refused to go. He is a tall, slightly overweight male, disheveled, wearing hospital issued blue paper scrubs. He is pacing in and out of his room, is irritable, guarded and suspicious. His speech is well articulated, thought processes disorganized. He stated: "I'm not allowing this. This interrogation doesn't make any sense. Everybody wants something out of me. What is this, a detention?" R the patient continues pacing and mumbling to himself, seems to respond to internal stimuli. According to the nursing staff he is sleeping well, eats all three meals. The patient's vital signs have been within normal limits, there is no laboratory work up to be followed up on, he continues to be disorganized and needs further stabilization in a safe environment. We will continue present management and follow-up daily.
[2016-11-02 16:06] VITALS: BP 111/45
[2016-11-02 20:09] VITALS: BP 112/74
--- NOTE | 2016-11-02 21:17 | NUR ---
PT IS VISIBLE ON UNIT, WATCHING TV AND MOSTLY STAYING TO HIMSELF. MINIMAL INTERACTION WITH PEERS AND STAFF. AT TIMES PT APPEARS PARANOID WITH AN IRRITABLE EDGE. OVERALL COOPERATIVE AND COMPLIANT WITH STAFF. NO COMPLAINTS OR SI REPORTED. PT HAS A IRRITABLE MOOD AND CONSTRICTED AFFECT.
[2016-11-03 07:53] VITALS: BP 100/61
[2016-11-03 11:52] VITALS: BP 115/67
--- NOTE | 2016-11-03 13:21 | NUR ---
PT IS VISABLE IN THE COMMUNITY, WALKING AROUND THE UNIT. PT ATTENDS SOME GROUPS BUT IS UNABLE TO FULLY PARTICIPATE. PT COMMUNICATION IS DISORGANIZED, WITH TANGENTIAL FRAGMENTS. PT IS ABLE TO ANSWER DIRECTION QUESTIONS. PT MOOD IS STABLE WITH A CONSTRIACTED AFFECT. PT DENIES SI THOUGHTS.
--- NOTE | 2016-11-03 13:37 | CP SOUTH PROGRESS NOTE PSYCH ---
Psych (Inpt) Progress Note Progress Note Include the following elements, when applicable: Involvement in the active treatment of the patient with behavioral observations of the patient and the patient's response to the treatment. Review of the ongoing treatment process in the context of the treatment plan. Indication of how multi-disciplinary staff members are carrying out the treatment plan. Plans for future interventions and recommendations for revision of the treatment plan. Liaison with other physicians/providers. Progress Note: The patient was seen for follow-up. He was discussed with the unit staff and seen individually. As per the unit staff he has been sleeping and eating well, continues to be isolated and limited in his interaction with peers and staff members. When he interacts with peers and staff he is appropriate. He told us that with the increase in Depakote he feels better. He reports that he noticed a difference in his sleep and thinking. He speaks in a well articulated, tangential speech. Continues to be irritable and paranoid, with low tolerance in completing the assessment we gave. The patient denies suicidal/homicidal ideation, auditory/visual hallucinations or side effects from the medication. The valproic acid level is therapeutic. We will continue present management and the patient will be followed up daily.
[2016-11-03 15:49] VITALS: BP 110/80
[2016-11-03 20:28] VITALS: BP 121/78
--- NOTE | 2016-11-03 23:05 | NUR ---
PATIENT ALERT AND ORIENTED X3, CALM, COOPERATIVE WITH TREATMENT PLAN, BUT REMAINS CONSTRICTED IN AFFECT, ISOLATIVE IN ROOM FOR LONG STRETCHES, PERIODICALLY APPEARS IN MILEU, EYES ROAMING THE UNIT; CONVERSATIONS REMAIN SOMEWHAT TANGENTIAL.
--- NOTE | 2016-11-04 06:27 | NUR ---
AWAKE OFF AND ON UNTIL 0145, THEN APPEARED TO SLEEP.
[2016-11-04 08:08] VITALS: BP 110/72
[2016-11-04 12:10] VITALS: BP 115/70
--- NOTE | 2016-11-04 13:18 | NUR ---
PT PRESENTS BIZARRE WITH A LOOSE AND TANGENTIAL AFFECT. PT NOTED TO BE SPEAKING IN THIRD PERSON AT TIMES. PT HAS AN IRRITABLE AFFECT AND CAN BE ABRASIVE AT TIMES. PT DENIES SI AT THIS TIME, NO COMPLAINTS OFFERED. PT IS PRESENT IN THE COMMUNITY AND HAS LITTLE INTERACTION WITH PEERS AND STAFF. PT IS ATTENDING SOME GROUPS. VITALS ARE STABLE, APPETITE IS GOOD.
--- NOTE | 2016-11-04 14:55 | SOCIAL WORKER PROG NOTE PSYCH ---
Social Work Progress Note Progress Note Micah mentions that him and his brother have had years of discord. He mentions he will move out and won't live there but it will take some time. He hopes his brother is reasonable about this request. He continues to be disorganized in his thinking and communicating but is making more sense. Brings up the discharge date of the . I will call to reschedule [facility] appointment with Micah Ahmadi, the new appointment is 1pm on November 13.
[2016-11-04 16:32] VITALS: BP 127/65
[2016-11-04 19:42] VITALS: BP 110/66
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
--- NOTE | 2016-11-04 21:40 | NUR ---
PT IS VISIBLE ON UNIT, MOSTLY STAYING TO HIMSELF AND PACING THE HALLS. OVERALL COOPERATIVE AND COMPLIANT WITH STAFF. REFUSED WRAP UP MEETING THIS EVENING. PT HAS A IRRITABLE EDGE AND HAS MINIMAL INTERACTION WITH ANYONE. WHEN PT DOES COMMUNICATE HE IS TANGENTIAL. NO COMPLAINTS OR SI REPORTED. PT HAS A IRRIABLE MOOD AND CONSTRICTED AFFECT.
--- NOTE | 2016-11-05 06:16 | NUR ---
PT CONTINUES ON THE PERIPHERY, BIZARRE, WITH UNINTELLIGIBLE BRIEF ANSWERS. PT SLEPT.
[2016-11-05 08:13] VITALS: BP 112/66
--- NOTE | 2016-11-05 10:29 | NUR ---
PT WAS OBSERVED SPITTING ON THE FLOOR AND HITTING THE WINDOW ACROSS FROM HIS ROOM. WHEN ASKED WHY HIS RESPONSE WAS DELUSIONAL AND NONSENSICAL. DR LANDA NOTIFIED AND SECURITY CALLED. PT GIVEN ZYPREXA 2.5MG PO PRN. WILL MONITOR EFFECT
[2016-11-05 12:30] VITALS: BP 107/64
--- NOTE | 2016-11-05 12:36 | SOCIAL WORKER PROG NOTE PSYCH ---
Social Work Progress Note Progress Note Left a message requesting Davie(brother) return on the for a review and family meeting. Awaiting a call back.
--- NOTE | 2016-11-05 13:22 | CP SOUTH PROGRESS NOTE PSYCH ---
Psych (Inpt) Progress Note Progress Note Include the following elements, when applicable: Involvement in the active treatment of the patient with behavioral observations of the patient and the patient's response to the treatment. Review of the ongoing treatment process in the context of the treatment plan. Indication of how multi-disciplinary staff members are carrying out the treatment plan. Plans for future interventions and recommendations for revision of the treatment plan. Liaison with other physicians/providers. Progress Note: PSYCHIATRIST NOTE, 11/05/2016): I discussed this patient's slow progress to date, current mental status, treatment and discharge planning with staff team today in the daily morning ITTM and also met with him again myself in individual session. Patient would still like to have one more family meeting with his brother and social work is trying to set this up; patient's elderly aunt is coming to pick him up on discharge which is now planned for tomorrow, 11/06/2016. Patient is tolerating current medications well, becoming a bit easier to understand and converse with for brief intervals day-by-day though still soon regressing to more disorganized, tangential and loose discourse with paranoid trends but without formed/fixed delusions. He expresses continuing desire to work "with" his brother to sell their jointly held property but is understandably concerned about having a place to live thereafter.
--- NOTE | 2016-11-05 13:40 | NUR ---
PT REMAINS BIZARRE, APPEARS PARANOID, SPEAKS NONSENSICALLY AND OFF TOPIC. PT DENIES SI AT THIS TIME. PT TENDS TO BE WITHDRAWN IN ROOM AND IS WITHDRAWN AND ISOLATIVE FROM OTHERS WHEN PRESENT ON THE UNIT. PT OOB FOR MEALS AND VITALS. PT IS ATTENDING MOST GROUPS. VITALS ARE STABLE, APPETITE IS GOOD.
--- NOTE | 2016-11-05 15:06 | SOCIAL WORKER PROG NOTE PSYCH ---
Social Work Progress Note Progress Note Aunt María will supervisor opening and picking patient for discharge tomorrow. Pt denies desire to hurt himself or anyone else.He indicates he is agreeable to treatment recommendations including [facility] for case management and [facility] for outpatient. Pt states I don't want to make matter worse, and I don't want to larry each other, in regards to his brother. We spoke to Davie, and agreed they would sell the house, and split the profits. Moving forward Aunhermelinda Daniel stated she could help along with outpatient providers to help sell his home and or find a new place to live.
[2016-11-05 15:55] VITALS: BP 121/76
[2016-11-05 16:24] VITALS: BP 121/76
[2016-11-05 19:55] VITALS: BP 129/83
--- NOTE | 2016-11-05 21:00 | NUR ---
PT IS ISOLATIVE/WITHDRAWN, WILL AT TIMES INTERACT WITH OTHERS, BUT IN A VERY DISORGANIZED WAY. DIFFICULT TO FOLLOW COMMUNICATION PATTERNS. MOSTLY PACING ABOUT UNIT, TALKING UNDER BREATH AT TIMES, STAYING IN PERIPHERY. MOOD IS STABLE, AFFECT IS FLAT/CONSTRICTED, COMMUNICATION DISORGANIZED, AND APPETITE IS NORMAL. PT DENIES SI AT THIS TIME.
--- NOTE | 2016-11-06 05:39 | NUR ---
PT CONTINUES ON THE PERIPHERY, BIZARRE WITH UNINTELLIGIBLE BRIEF STATEMENTS. PT UP FOR ONE HOUR IN THE NIGHT.
[2016-11-06 07:34] VITALS: BP 118/73
[2016-11-06 12:35] VITALS: BP 104/57
--- NOTE | 2016-11-06 13:14 | NUR ---
PT IS COMPLIANT AND COOPERATIVE WITH UNIT RULES. PT REMAINS WITHDRAWN AND ISOALTIVE IN ROOM FOR MOST OF SHIFT. PT ATTENDS SOME GROUPS, BUT IS DISORGANIZED AND NEEDS REDIRECTION. PT MOOD IS STABLE WITH A CONSTRICTED AFFECT. PT DENIES SI THOUGHTS.
--- NOTE | 2016-11-06 14:03 | NUR ---
PT IS PRESENT ON THE UNIT, ATTENDS GROUPS, SOCIAL AT TIMES WITH PEERS AND STAFF, MOOD IS IRRITABLE AT TIMES HOWEVER OVERALL STABLE WITH FULL RANGE AFFECT, REMAINS BIZARE/DISORGANIZED AT TIMES BUT IS FUNCTIONAL, TENDS TO SELF AND ADLS AND ABLE TO VERBALIZE NEEDS. WHEN ASKED DIRECTLY DENIES SI/HI/HALLUCINATIONS, PT RESOURCE GUIDE AND W-10 REVIEWED WITH PT AND VERBALIZED UNDERSTANDING AND HAS + UNDERSTANDING RE: MEDICATIONS AND FOLLOW-UP INSTRUCTIONS.INFORMATION PACKET RE: SCHIZOAFFECTIVE & SI GIVEN TO PT WELL, ALL IN AGREEMENT, PT REPORTS FEELING BETTER AND AN IMPROVEMENT IN MOOD/BEHAVIOR/SLEEP AND APPETITE.
[2016-11-06] MEDS ORDERED: DIVALPROEX SOD500 M3 PO ×2 (15:06)
[2016-11-06] MEDS ORDERED: OLANZAPINE10 M1 PO ×2 (15:07)
--- NOTE | 2016-11-06 15:09 | SOCIAL WORKER PROG NOTE PSYCH ---
Social Work Progress Note Progress Note Pt reports he anxious about discharge, he is agreeable to return home, and was made aware of follow up appointments, he was slightly unnerved that his Aunt backed up and wouldn't come get him, as it would of been preferred for him to have a familiar face to return home with. His family is not sure how to clark dle him moving forward as they have found it difficult in the past. Pt reports he could pickling solution maker his medications at our pharmacy and would take a cab home, [place] cab booked for 330p.
--- NOTE | 2016-11-06 15:57 | CP SOUTH PROGRESS NOTE PSYCH ---
Psych (Inpt) Progress Note Progress Note Include the following elements, when applicable: Involvement in the active treatment of the patient with behavioral observations of the patient and the patient's response to the treatment. Review of the ongoing treatment process in the context of the treatment plan. Indication of how multi-disciplinary staff members are carrying out the treatment plan. Plans for future interventions and recommendations for revision of the treatment plan. Liaison with other physicians/providers. Progress Note: PSYCHIATRIST NOTE (DISCHARGE) 11/06/2016: I discussed this patient's slow progress to date, current mental status, treatment and discharge plans with staff team today in the daily morning ITTM and Ms. Janae Senior, Pilot Teacher of [facility] and Ms. Hilary Dominguez, staff nurse, and myself prior to discharging him to resume his outpatient treatment with [facility] where he is scheduled for a medication evaluation appointment on 11/13/2016 at 1pm with Micah Ahmadi APRN; he also has an intake at the [facility] in [place], [place] tomorrow, 11/07/2016 at 2pm for initiation of case management (and likely eventually additional) services. Patient did very well during what was a difficult meeting with not one or two but three staff members; we went over his interactions with staff members overnight and this morning, and he handled himself calmly and rationally without any evidence whatsoever of overt expressed psychotic ideation and kept his composure afterwards as well; I met with him again myself in individual session and complimented the way he had handled himself in the earlier meeting. Patient was pleased to be going home and, I think, that he and I had worked out the date of discharge between us, not unilaterally on either side (he had signed and subsequently withdrew two "3-day papers" over the course of this admission). Patient denied any side effects on current medication regimen and dosages and said he would continue to take them and discuss any changes with his outpatient prescriber. Patient is reassured that his brother Davie will "work with [him]" on how and when to dispose of their jointly own condominium and that he will be able to stay there until he has found and secured a suitable and affordable alternative residence; all he ever wanted was to feel that he and his brother were working "together" to resolve the condo matter, not that his brother was "dictating everything to [him]." I have called into the [facility] pharmacy on date of discharge, 11/06/2016: Zyprexa, 10mg: i daily in AM; #14 with no refill (reduce racing thoughts and clarify thinking) Zyprexa, 20mg: i nightly at HS; #14 with no refill (reduce racing thoughts/ clarify thinking) (patient is currently prescribed a total of 30mg of Zyprexa daily) Depakote ER, 500mg: i tab in AM ii tabs evenings (total 1,500mg/day); #42 with no refill (stabilize moods) (patient has never smoked tobacco and does not drink alcohol)
--- NOTE | 2016-11-06 16:05 | DISCHARGE SUMMARY REPORT-PSYCH ---
Visit Information Visit Dates/Diagnosis' Admission Date: 10/22/16 Discharge Date: 11/06/16 Reason for Admission: "Why am I here?" Psy Discharge Primary Diag: Schizoaffective Disorder; Mixed/Manic;MRE irritable with florid psychotic sx (dense thought disorder) R/O Schizophrenia Psy Discharge Secondary Diag: hx Rob Thyroiditis (currently hypothyroid) Hospital Course Significant Lab Findings: glucose = 141; HDL = 62; total bilirubin = 1.7 and 0.4, ALT = 92 and 55; total protein = 6.1; lymphs 16.4% with 1.0% lymph abs, monos 10.6% with 0.7% mono abs; PROSPER = less than 10; urine for drugs of abuse--negative (for complete details of all normal range laboratory data from this admission, see the electronic medical record) Course Complications: none Consultations: patient was seen for an admission medical H&P by Vera Piedra M.D., and followed during this admission by the hospitalist staff/[facility] medical attending physicians Allergies: Coded Allergies: fluphenazine (DECREASES THRESHOLD FOR SEIZURES PER AN MD 10/22/16) haloperidol (SOB 10/22/16) Hospital Course/TX Response: (see also, all initial/admission assessments and daily M.D./EMPLOYEE RELATIONS CONSULTANT and MOOSE HUNTER progress notes from this admission in the electronic medical record) Patient appears to be suffering acute or possibly subacute but severe exacerbation of a chronic psychotic disorder with possible mood component but thought disorder and florid paranoid ideation predominate the clinical picture at this time. Patient was apparently described by his brother as having "done better in the past" when taking Prolixin decanoate but suffered a recurrence of seizure activity in [id number] which likely caused medical providers to suggest switching from Prolixin to another anti-psychotic agent. Patient was destabilized by loss of reliable dosing with anti-psychotic medication coupled with of his mother with whom he most likely had resided for an extended interval, possibly most of his life to the point of her 3 years ago. Relationship with brother with whom he has been living (in mother's home which is now their joint property) has deteriorated to the point that brother moved out recently, also further upsetting patient who has said that he was "afraid" without his brother at home with him. Brother's filling an official request/ demand that patient either "buy" brother out of their home or allow the property to be sold and divided between them has likely been the procimite precipitant for the current admission. We should assess whether patient would accept treatment with another agent available in longacting depot form (such as Risperdal, Invega or Abilify) and optimalize treatment with Depakote ER (for both seizure prophylaxis and treatment of possible mood/affective component to disorder (which had also apparently been called "bipolor" previously). We need to clarify the situation vis-a-vis patient's living situation, timetable for sale of home if there is one at this time or will be one in near future, or if brother cannot legally compel patient to move out of his own home. Ms. Janae Senior, Auto Body Technician of [facility] and Ms. Hilary Dominguez, staff nurse , and I met with patient prior to discharging him to resume his outpatient treatment with [facility] where he is scheduled for a medication evaluation appointment on 11/13/2016 at 1pm with Micah Ahmadi APRN; he also has an intake at the [facility] in [place], [place] tomorrow, 11/07/2016 at 2pm for initiation of case management (and likely eventually additional) services. Patient did very well during what was a difficult meeting with not one or two but three staff members; we went over his interactions with staff members overnight and this morning, and he handled himself calmly and rationally without any evidence whatsoever of overt expressed psychotic ideation and kept his composure afterwards as well; I met with him again myself in individual session and complimented the way he had handled himself in the earlier meeting. Patient was pleased to be going home and, I think, that he and I had worked out the date of discharge between us, not unilaterally on either side (he had signed and subsequently withdrew two "3-day papers" over the course of this admission). Patient denied any side effects on current medication regimen and dosages and said he would continue to take them and discuss any changes with his outpatient prescriber. Patient is reassured that his brother Davie will "work with [him]" on how and when to dispose of their jointly own condominium and that he will be able to stay there until he has found and secured a suitable and affordable alternative residence; all he ever wanted was to feel that he and his brother were working "together" to resolve the condo matter, not that his brother was "dictating everything to [him]." Discharge HBIPS - Tobacco Use Treatment Offered Post DC Medications Offered: NA-No Tob Use >30 days Post DC Tobacco Treatment Plan: NA-No Tobacco use >30days - EtOH/Drug Use D/O Treatment Offered Post DC Medications Offered: NA-No EtOH/Drug Use D/O Post DC EtOH/SubAbuse TX Plan: NA-No EtOH/Drug Use D/O Metabolic Screening - Screen if on a Neuroleptic Medication - Metabolic screening should include: - Blood Pressure, BMI, Glucose or Hgb A1c, & a - Lipid profile from within the past 365 days. Metabolic Screening gl() Not Applicable, patient not on a neuroleptic. OR ([x]) Patient on a neuroleptic(s) . Enter below results for Glucose or Hemoglobin A1C, and lipid panel if obtained during the last 365 days. BMI: Blood Pressure: 104/57 Laboratory Results (If applicable): [x] glucose = 141 (10/22/2016) glycos hgb A1c = 5.8 (on 10/25/2016) cholesterol = 183 (all drawn on 10/23/2016) triglycerides = 63 HDL = 62 LDL =109 Discharge Instructions General Discharge Information Discharge Medications: I have called into the [facility] on date of discharge, 11/06/2016: Zyprexa, 10mg: i daily in AM; #14 with no refill (reduce racing thoughts and clarify thinking) Zyprexa, 20mg: i nightly at HS; #14 with no refill (reduce racing thoughts/ clarify thinking) (patient is currently prescribed a total of 30mg of Zyprexa daily) Depakote ER, 500mg: i tab in AM ii tabs evenings (total 1,500mg/day); #42 with no refill (stabilize moods) (patient has never smoked tobacco and does not drink alcohol) Multiple Neuroleptics: ([X]) Not Applicable OR Document below three failed attempts at monotherapy, or a plan to taper to monotherapy, or augmentation of Clozapine. () Patient's Diet: heart healthy Patient's Activity: without restrictions DC Disposition: to home Recommendations: Following an interval of outpatient stabilization I would recommend attempt be made to gradually taper current dose of Zyprexa. Referred To: Patient will resume his outpatient treatment with [facility], where he was scheduled for a medication evaluation appointment on 11/13/2016 at 1pm with Micah Ahmadi APRN; he also had an intake at the [facility] clinic in [place], on the day after discharge 11/07/2016 at 2pm for initiation of case management (and likely eventually additional) services. If things go well with the [facility] referral and patient becomes sufficiently comfortable with their services/staff, it would be best for him to transfer his clinical treatment there from [facility], but for the present he is much more attached to and trusting of care at the latter where he and other members of his family have gone for many years before he moved to [place], [place]. Copies To: [facility]
== END 2016-11-06 15:54 | DRG 885 ==
LOC: ERH 12:23 → ERHI 17:01 → CP SOUTH 17:01 → ENPENDDIS 11-06 16:00
PROVIDERS: Emergency Medicine; ADMIT Psychiatry & Neurology Psychiatry
DX: F25.0 Schizoaffective disorder, bipolar type (principal); E03.9 Hypothyroidism, unspecified
CPT/HCPCS: 36415; 80307; G0480; J3490

== ENCOUNTER 2017-10-16 15:26 | Inpatient (IN) | payer OTHER, MEDICARE ==
[~2017-10-16] VITALS: Ht 182.9 cm; Wt 86.2 kg
[~2017-10-16 15:26] MED LIST changes: +DIVALPROEX SOD500 M3 PO; +OLANZAPINE10 M1 PO
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
[2017-10-16 16:55] LABS: ABSOLUTE BASOPHIL COUNT 0 /CUMM (0.0-0.2); ABSOLUTE EOSINOPHIL COUNT 0.1 /CUMM (0.0-0.7); ABSOLUTE GRANULOCYTE CT 4.5 /CUMM (1.4-6.5); ABSOLUTE LYMPH COUNT 1.8 /CUMM (1.2-3.4); ABSOLUTE MONOCYTE COUNT 0.8 /CUMM (0.10-0.60); BASOPHIL % 0.3 % (0.0-2.0); EOSINOPHIL % 1.4 % (0-5); GRANULOCYTE % 62.3 % (42.2-75.2); HEMATOCRIT 43.5 % (42-52); MEAN CORPUSCULAR HGB 31.7 PG (27.0-31.0); MEAN CORPUSCULAR HGB CONC 34.3 G/DL (33.0-37.0); MEAN CORPUSCULAR VOLUME 92.3 FL (80.0-94.0); MEAN PLATELET VOLUME 8.1 FL (7.4-10.4); PLATELET COUNT 215 /CUMM (130-400); RED BLOOD CELL CT 4.71 /CUMM (4.70-6.10); WHITE BLOOD CELL COUNT 7.3 /CUMM (4.8-10.8)
[2017-10-16] MEDS ORDERED: OLANZAPINE20 M1 PO (20:41)
[2017-10-16] MEDS ORDERED: DEPAKOTE500 M1 PO (20:41)
[2017-10-16] MEDS ORDERED: OLANZAPINE5 M2 PO (20:41)
[2017-10-16] MEDS ORDERED: LEVOTHYROXINE150 MCG PO (20:41)
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
--- NOTE | 2017-10-16 22:14 | ED PSY CRISIS COLLATERAL NOTE ---
Collateral Note Collateral Note Family/Inform/Timoteo Contacts: Crisis spoke with brother, Case Gillespie ([phone]). He reports that pt has been struggling with mental illness for 30 years, but his mental health has declined since thier mothers in 2013. Brother reports that pt has had 7 or 8 inpatient hospitalizations since 2013 and 3-4 inpatient hospitalizations in the past year, most recently at [facility] (end of July to mid August). Brother reports that pt cycles from doing well and being stable to not taking his medication and ending back up in inpatient units. Brother stated that he last spoke to pt about 2 weeks ago when he discharged from [facility] and he was stable. He identified that prior going into [facility] in July, pt was being evicted from his apartment. Brother reported that he is not surprised that pt is in the ED. He reports he has been posting "bizarre" things on facebook the last few days and he assumed that pt probably wasn't on his medication. Brother believes that pt needs longer -term care such as a senior living to monitor him and ensure he is taking his medication. He states that he feels like his brother needs a conservator, but noone is willing to do it. Brother gave the following names to contact and [facility] - Ting Sims - Toll Mechanic and Jayshree Ahmadi - nurse.
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
[2017-10-17 16:06] VITALS: BP 128/72
[2017-10-17 20:01] VITALS: BP 122/71
[2017-10-18 07:52] VITALS: BP 92/60
[2017-10-18 12:13] VITALS: BP 114/60
--- NOTE | 2017-10-18 12:44 | History & Physical ---
General Information and HPI History of Present Illness: 47-year-old male with history of bipolar disorder admitted to the inpatient psychiatry service for management of acute psychosis. Currently resting comfortably. Does not appear to be in acute distress. He is cooperative however when conversing with him he has disorganized thoughts. On review of system he denies any blurry vision. Denies any nausea vomiting. Denies any abdominal pain. Denies chest pain or shortness of breath. Denies cough. Denies palpitations. Denies heat or cold intolerance. Denies constipation or diarrhea. Denies dysuria. Allergies/Medications Allergies: Coded Allergies: fluphenazine (DECREASES THRESHOLD FOR SEIZURES PER AN MD 10/22/16) haloperidol (SOB 10/22/16) olanzapine (PER PT EATS TOO MUCH 10/17/17) Home Med list Divalproex Sodium (Depakote) 500 MG TABLET.DR 1 TAB PO BID MENTAL HEALTH ( Reported) Levothyroxine Sodium 150 MCG TABLET 1 TAB PO 0600 THYROID (Reported) Olanzapine 20 MG TABLET 1 TAB PO QHS MENTAL HEALTH (Reported) Olanzapine 5 MG TABLET 1 TAB PO QHS MENTAL HEALTH (Reported) Past History Travel History Traveled to [place] past 21 day No Medical History Neurological: seizure (from 1985; last sz in 2014) EENT: NONE Cardiovascular: hypertension Respiratory: NONE Gastrointestinal: CHRONIC ABD PAIN Hepatic: NONE Renal: NONE Musculoskeletal: NONE Psychiatric: alcohol dependence (reported in remission x6 years), schizo affective disorder (R/O Schizophrenia (paranoid)), substance abuse (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 Psychosocial History Services at Home: None Review of Systems Review of Systems Constitutional: Reports: see HPI. Exam & Diagnostic Data Last 24 Hrs of Vital Signs/I&O Vital Signs Date Time Temp Pulse Resp B/P B/P Pulse O2 O2 Flow FiO2 Mean Ox Delivery Rate 10/18 1213 108 114/60 10/18 0752 97.8 92 92/60 04/27 2001 100.2 96 122/71 04/27 1606 92 128/72 10/17 1513 97.8 69 20 145/57 96 Room Air Intake & Output 10/18 1600 10/18 0800 10/18 0000 Intake Total Output Total Balance Patient 86.183 kg Weight Physical Exam General Appearance Alert, Oriented X3, Cooperative, Left cheek swelling. No tenderness. no erythema or discharge. Dental crwons present on the left lower molars. no clinical evidence of infection. Skin No Rashes, No Breakdown HEENT Atraumatic, PERRLA, EOMI Neck No JVD, No thryomegaly Cardiovascular Regular Rate, Normal S1, Normal S2, No Murmurs Lungs Clear to Auscultation, Normal Air Movement Abdomen Normal Bowel Sounds, Soft, No Tenderness, No Masses Neurological Cranial Nerves II through XII: Within normal limits. Extremities No Cyanosis, No Edema Assessment/Plan Assessment: 47-year-old male with history of bipolar disorder admitted to the inpatient psychiatric service due to increased symptoms of psychosis. Currently, but remains with disorganized thoughts. He has a left cheek swelling which he states is chronic for which she has seen a dentist in the past. He is unsure what he was diagnosed with. On current evaluation there is no evidence of an acute infectious process. Recommendations: -Recommend that at the time of discharge patient should be provided with an appointment to see a dentist. -Continue management as directed by the psychiatry service. - Please reconsult the medical team as needed. As Ranked By This Provider Problem List: 1. Bipolar 1 disorder 2. Acute psychosis Miscellaneous Miscellaneous Documentation Attending Case Discussed With: Cali MENDEZ,Estevan Primary Care Physician: Bart Rubin MD Patient sees these Specialists None. Level of Patient Care: [facility]
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
--- NOTE | 2017-10-18 15:01 | SOCIAL WORKER PROG NOTE PSYCH ---
Social Work Progress Note Progress Note SW spoke to CPS staff and Dr. Crystal, who confirm that the patient is not appropriate for evaluation at this time.
[2017-10-18 15:42] VITALS: BP 105/51
[2017-10-18 20:03] VITALS: BP 145/75
[2017-10-19 07:37] VITALS: BP 108/65
--- NOTE | 2017-10-19 11:56 | CP SOUTH PROGRESS NOTE PSYCH ---
Psych (Inpt) Progress Note Progress Note Include the following elements, when applicable: Involvement in the active treatment of the patient with behavioral observations of the patient and the patient's response to the treatment. Review of the ongoing treatment process in the context of the treatment plan. Indication of how multi-disciplinary staff members are carrying out the treatment plan. Plans for future interventions and recommendations for revision of the treatment plan. Liaison with other physicians/providers. Progress Note: Stated that he is doing okay. Said, "hopefully I'll find here, I will find a nice place" and parrotting some of my words and questions back to me. Agreed to increase olanzapine night time dose to 20mg; said he was allergic to it (has been taking it, noted that he eats too much on it), but had no issues with it now and no AE noted. Had some trouble falling asleep, was agitated last night, took oral PRN meds and eventually slept. He continues to be acutely psychotic but today was less pressured. MSE: middle aged man, overweight, poor grooming. No psychomotor agitation as there was yesterday. No tic or tremor. Fair eye contact, intense and staring at times, though less than yesterday. Speech is regular rate and volume. His mood is annoyed and affect is constricted and stable. His thinking is disorganized, derailed, with occasional echolalia, thought blocking present. No gross delusional system elicited, too disorganized really to determine what thought content he is preoccupied with. Distracted but not actively hallucinating. insight near absent to his current sx and judgment poor. 47 year old man with severe psychotic sx, with thought blocking, almost word salad, disorganized. He has had some improvement even compared to yesterday in his intensity and pressured thinking. He has risk factors associated with his severe sx which are addressed with meds, milieu, groups and education. Plan: increase night time olanzapine to 20mg. has been responding to the meds thus far. Maintain olanzapine oral PRN NTE 2 doses/24hrs.
[2017-10-19 12:00] VITALS: BP 129/69
[2017-10-19 15:40] VITALS: BP 127/77
--- NOTE | 2017-10-19 19:40 | SOCIAL WORKER PROG NOTE PSYCH ---
Social Work Progress Note Progress Note Pt unable to participate in this evaluation at this time, he presents as paranoid and delusional.
[2017-10-19 19:41] VITALS: BP 136/76
[2017-10-20 08:04] VITALS: BP 113/59
--- NOTE | 2017-10-20 11:35 | SOCIAL WORKER PROG NOTE PSYCH ---
Social Work Progress Note Progress Note Introduced myself to Joe, who was present in the milieu. He allowed me to speak with him, but prefaced it with it would be brief because he just met with the doctor. Grooming appeared unkept as his hair was sticking up and uncombed today. He reports he came here because of "drowsiness". He said he still feels a little drowsy. Denies he came due to any other symptoms. He was difficult to engage in conversation, as he would answer my question with a question and he was quite disorganized. He asked if I thought Olanzapine would help? I told him that it definetely would help organize his thoughts. He reported that he was working for [employer] and confirmed he was getting tx at [employer]. He signed a release for [employer] with some encouragement and explanation that we would have to talk with them to discuss d/c planning. I asked if he had family as support? He told me he tries not to involve family. I mentioned his Brother. He said he was trying not to involve Brother because "he's on his own medication." Reports renting a 2 bedroom apartment. Told me sometimes friends stay there and he charges them rent. I asked if anyone was there now? He said that was "not known." He did know the date today by looking over at the board in the kitchen. He basically stopped the meeting as he seemed overwhelmed with too many questions. Also worth mentioning is he stopped the conversation a couple of times to say "you are staring at me." I assured him that me looking at him was because we were having a conversation and I like to have eye contact.
[2017-10-20 12:03] VITALS: BP 10/61
--- NOTE | 2017-10-20 14:50 | SOCIAL WORKER PROG NOTE PSYCH ---
Social Work Progress Note Progress Note Crisis merchandising internship, Misti, attempted to complete the social today. Pt was unable to participate in the assessment. The answers to questions asked were nonsensical.
--- NOTE | 2017-10-20 16:06 | CP SOUTH PROGRESS NOTE PSYCH ---
See Addendum Psych (Inpt) Progress Note Progress Note Include the following elements, when applicable: Involvement in the active treatment of the patient with behavioral observations of the patient and the patient's response to the treatment. Review of the ongoing treatment process in the context of the treatment plan. Indication of how multi-disciplinary staff members are carrying out the treatment plan. Plans for future interventions and recommendations for revision of the treatment plan. Liaison with other physicians/providers. Progress Note: Dr. Janet Montez's notes reviewed. Case and treatment plan discussed in team meeting. Staff reports that the patient is denying suicidal ideation. Described as displaying nasty and irritable behavior. Continues to be psychotic. Spoke word salad this weekend but that has been improving. Reported some swelling at the left jaw. Taking medications. Patient seen at 10:43 AM. He was sitting in lounge prior to meeting with me in office. He appears unkempt. He is bearded. His shirt is stained. He is wearing blue paper scrubs pants. Reports he feels more restful than when he came in. States he is here "for no reason, you have all my information and banking information locked in." Seems pleased "for today" with medication adjustments. Affect is calm and blunted. Thinking is disorganized with loosening of associations. Mood is positive. Rates sad mood 5/10 and anxiety 3 /10. Denies feeling hopeless, helpless or worthless. Feels guilty, and I asked specifics, and he replied "you wouldn't understand." Denies suicidal and homicidal ideation. Denies hearing voices today, stating he has not had them since early May 2017. Denies visual hallucinations. Feels that plenty of people are out to harm him. I asked specifics and he responded "I'd rather not say." Denies magical daily. Oriented 3 stating it is Friday but incorrectly gave the date as 10/18/17. Reports sleep is better than when he came in and he got 6 hours. Describes appetite as being on a diet and reports he lost some weight. Describes energy as in here sad and out there bright and energetic. Reports he lives alone in [place]. I asked about his supports and he replied he would rather not say, because then they think to do as he does, even his own family. I asked how patient is tolerating his medications, and he claims he has tardive dyskinesia in here but not on the outside. He stated "would you like to see my mouth caked?" Reports he is being evicted. Reports he is followed by Sandy Ahmadi APRN at [facility]. IMPRESSION: Slow progress. Continue present treatment plan. We will follow Depakote levels. Additional information is needed from collaterals. Continues to require inpatient level of care.
[2017-10-20 16:23] VITALS: BP 141/76
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
[2017-10-20 19:54] VITALS: BP 141/84
[2017-10-20 20:47] VITALS: BP 143/76
[2017-10-21 08:06] VITALS: BP 111/73
--- NOTE | 2017-10-21 11:14 | SOCIAL WORKER PROG NOTE PSYCH ---
Social Work Progress Note Progress Note Dr. Leiva and I met with oJe this morning. Joe was in group prior. He continues to present somewhat dishelved with his hair unkept. He reports that his mood is better. Denies any voices or visual hallucinations today. Focused on the present. Reports "never" being suicidal or homicidal. He knows he is here for a med adjustment. He is difficult to interview, because he continues to talk in ridules or answer questions with questions. He talked about having to say everything 2x's in the community. When asked why? He responds "I'm not a doctor." When asked if anyone is out to harm him? He said "could be." When asked who? He said "fate." Dr. Leiva asked him about family involvement in d/c planning. He refuses at this time to involve family. Encouraged him to keep going to groups.
[2017-10-21 12:23] VITALS: BP 122/70
[2017-10-21 15:57] VITALS: BP 141/80
--- NOTE | 2017-10-21 16:44 | CP SOUTH PROGRESS NOTE PSYCH ---
Psych (Inpt) Progress Note Progress Note Include the following elements, when applicable: Involvement in the active treatment of the patient with behavioral observations of the patient and the patient's response to the treatment. Review of the ongoing treatment process in the context of the treatment plan. Indication of how multi-disciplinary staff members are carrying out the treatment plan. Plans for future interventions and recommendations for revision of the treatment plan. Liaison with other physicians/providers. Progress Note: Case and treatment plan discussed in team meeting. Staff reports that the patient is denying suicidal ideation. Less agitated. Continues to appear psychotic. Refuses our recommendation for a family meeting. Patient seen at 10:12 AM with group social workerKeisha. Patient reports he remembers me vaguely. Feels better than when he came in. Pleased with his medication adjustment "for this calendar day." Thinking is disorganized. Affect is calm and euthymic. States that on the outside, everything he says, he says twice. Reports mood is better than when he came in. Rates sad mood 3/10 and anxiety 0/ 10. Denies feeling hopeless or helpless. Feels worthless at 3/10. When asked if feeling guilty, he responded "about what?" Denies suicidal and homicidal ideation. Denies having auditory or visual hallucinations today. I asked if anyone is out to harm him, and he responded "could be, I don't know, just fate. " Reports he slept 6 hours. Appetite is described as within reason. Reports energy is very bright. I asked how he is tolerating his medications, and he reports he is having problems with his medications at 10/10 because they are destroying brain cells. Patient speaks in poetic form and in riddles. He is unable to identify anyone whom he would like to have come in for a family meeting. IMPRESSION: Slow progress. Continue present treatment plan. Anticipate likely discharge on Friday if improvements are sustained.
--- NOTE | 2017-10-21 16:57 | IP INCIDENTAL NOTE PSYCH ---
Incidental Note Notation: Case d/w Sandy Ahmadi APRN at [facility]. She reports that 1) patient has been evicted. 2) patient has a seizure d/o. 3) patient is estranged from his brother.
[2017-10-21 19:47] VITALS: BP 140/58
[2017-10-22 07:36] VITALS: BP 164/69
--- NOTE | 2017-10-22 11:49 | SOCIAL WORKER PROG NOTE PSYCH ---
Social Work Progress Note Progress Note Joe was in bed late morning. Got up when prompted by Dr. Leiva to meet. Asked how he evening was? He said "I got some nocturnal sleep." Reports getting around 6 1/2 hours of sleep. Tried to explore why he was in bed this morning and not in group. He said "I don't need groups." Dr. Leiva shared that he spoke with Linda Ahmadi at [facility] and that she shared he was being evicted. Asked him some questions about that, but he is particular about what you ask and how you ask questions. Again answers questions with questions. He did say he had obtained a life insurance sales to help him. When asked about his mood today he said "ability to have thoughts and focus normal." Reports his meds are "perfect." Feels he is bright and energetic. Denies SI/HI and denies feelings of hopelessness, helplessness, worthlessness or guilt. He doesn't think anyone is after him "today." Continued to explore family supports or other people he might identify as a support. He couldn't really identify anyone other than possibly a María Gillespie. He didn't say who she was. Talked about discharge possibly for Friday.
[2017-10-22 12:23] VITALS: BP 132/76
--- NOTE | 2017-10-22 13:29 | CP SOUTH PROGRESS NOTE PSYCH ---
Psych (Inpt) Progress Note Progress Note Include the following elements, when applicable: Involvement in the active treatment of the patient with behavioral observations of the patient and the patient's response to the treatment. Review of the ongoing treatment process in the context of the treatment plan. Indication of how multi-disciplinary staff members are carrying out the treatment plan. Plans for future interventions and recommendations for revision of the treatment plan. Liaison with other physicians/providers. Progress Note: Case and treatment plan discussed in team meeting. Staff reports that the patient is denying suicidal ideation. Described as rude towards staff about getting his vital signs checked this morning. Has no filter. Patient seen with social security specialistKeisha, at 11:40 AM. Patient was resting in bed prior to meeting with us in office. States he got "some nocturnal sleep," about 6-1/2 hours. He feels kind of bored here. States he does not need group. States he hired a non emergency services ambulance driver to handle his eviction. When asked his mood, he replied "ability to have thoughts in focus, normal." States his medications are perfect. When asked if feeling sad, he responded that he is bright and energetic. States he is worried on the outside but not in here. Denies suicidal and homicidal ideation. Denies auditory and visual hallucinations. Denies paranoid ideation, stating "not today." Reports appetite is within reason and energy is "very well." Reports he has no emergency training personnel supervisor. IMPRESSION: Slow progress. Continue present treatment plan. Continues to display some loosening of associations but this is clearly improved from description of patient's thought processes over the weekend. Anticipate likely discharge by Friday afternoon.
[2017-10-22 16:00] VITALS: BP 124/73
[2017-10-22 19:37] VITALS: BP 134/76
[2017-10-23 07:42] VITALS: BP 110/66
[2017-10-23 11:57] VITALS: BP 117/61
--- NOTE | 2017-10-23 13:32 | CP SOUTH PROGRESS NOTE PSYCH ---
Psych (Inpt) Progress Note Progress Note Include the following elements, when applicable: Involvement in the active treatment of the patient with behavioral observations of the patient and the patient's response to the treatment. Review of the ongoing treatment process in the context of the treatment plan. Indication of how multi-disciplinary staff members are carrying out the treatment plan. Plans for future interventions and recommendations for revision of the treatment plan. Liaison with other physicians/providers. Progress Note: Case and treatment plan discussed in team meeting. Staff reports that the patient is taking his medications. Staff reports that sometimes it is hard to follow what the patient is talking about. Irritable. Denying suicidal ideation. Patient seen at 1:07 PM. When I asked to meet with him he said "I hope it's not bad news. [place] States he feels better than when he came in. Reports his thinking seems more focused. Reports he is able to breathe but complains of some "tremoring" and reports he has some "tardive dyskinesia." I asked him to provide more detail on tardive dyskinesia and he was referring to a chapped tongue. I told him I doubt this is tardive dyskinesia. He does show mild fine hand tremor bilaterally. Rates sad mood / 10 and anxiety 3/10. Denies feeling hopeless, helpless or worthless. Feels guilty "that I'm here." Denies suicidal and homicidal ideation. Denies auditory and visual hallucinations. I asked if he feels that anyone is out to harm him, and he responded "I wouldn't know." Reports sleep is better, now at about 7 hours. Describes appetite as within reason. Reports energy is bright. He left our meeting saying "all I asked is not to covet." IMPRESSION: Slow progress. Continue present treatment plan. Thought disorder persists but continues to improve. Anticipate discharge on Friday.
[2017-10-23 15:46] VITALS: BP 138/68
--- NOTE | 2017-10-23 16:16 | SOCIAL WORKER PROG NOTE PSYCH ---
Social Work Progress Note Progress Note Micah didn't have any specific concerns today. Continues to evade conversation by picking apart my questions. I tried to discuss his disclosure of having obtained a material chaser for the eviction. He told me that was done with and he won. I asked if he was getting to stay at his apartment? He didn't answer that question directly, but made a comment about relocating. He talked about moving often. He has been in this current apartment for less than a year. I asked if he was paying his rent? He said prepaying. I asked why he was being evicted? He said he didn't know and that's why he got a material chaser. He didn't care to discuss the details of it with me.
[2017-10-23 19:31] VITALS: BP 128/73
[2017-10-24 07:35] VITALS: BP 99/59
--- NOTE | 2017-10-24 11:21 | SOCIAL WORKER PROG NOTE PSYCH ---
Social Work Progress Note Progress Note Called [facility] set up an appt. for Micah to see Nilsa Ahmadi GASPER for 11/11 at 12pm. I left a message with his therapist Manjeet Angelo to see if we can set up an appt. I talked to Joe about the above information. He mentioned leaving Friday if all is well and needing a cab home. He asked about the hospital setting that up. I told him that he is not eligible for a medical cab due to only having Medicare. He said he will get a regular taxi. I asked if he had funds for a cab? He confused me with his answer, stating he had his debit card in the safe. I asked if he had watters? He didn't say. He then asked if the hospital would cover it? I told him we would discuss it further on Friday and that I would check in with him to see how he feels. Encouraged him to go to group. He said he didn't think he should have to go to a discharge planning group if he's doing discharge planning with me. I told him that he and I discuss specifics, but there might be more general discussion in the group. He then said he was done talking. I left the room at that point.
[2017-10-24 12:03] VITALS: BP 130/72
[2017-10-24 15:47] VITALS: BP 120/83
--- NOTE | 2017-10-24 15:48 | CP SOUTH PROGRESS NOTE PSYCH ---
Psych (Inpt) Progress Note Progress Note Include the following elements, when applicable: Involvement in the active treatment of the patient with behavioral observations of the patient and the patient's response to the treatment. Review of the ongoing treatment process in the context of the treatment plan. Indication of how multi-disciplinary staff members are carrying out the treatment plan. Plans for future interventions and recommendations for revision of the treatment plan. Liaison with other physicians/providers. Progress Note: Case and treatment plan discussed in team meeting. Staff reports that the patient has been edgy but compliant. Refusing most groups. Drinking a lot of [id number] mouthwash. We will restrict his access to this. Somewhat bizarre. Patient seen at 11:44 AM. He was resting in bed but got up and met with me in office. States he feels better than when he came in. Reports he has no questions except he wants his ID back before he leaves. States everybody has been fine, because it has been a short stay for once. Tolerating medication adjustments here. States he will need to move. Affect is calm and blunted. Reports mood is more stable than when he came in. Complains of lip having tardive dyskinesia but not as bad as when he came in. I did not observe this. Reports left lower jaw is less swollen. Plans to see his dentist after discharge. Reports some difficulty swallowing. Rates sad mood /10 and anxiety 3/10. Denies feeling hopeless. Denies feeling helpless, stating "not anymore. " Denies feeling worthless, stating "not today, no." When asked about guilt, he responded "how so?" Denies active and passive suicidal ideation. Reports family members have spoken of suicidal ideation in the past but he was vague about this. Denies homicidal ideation. Denies auditory and visual hallucinations. Denies paranoid ideation. Reports sleep and appetite are within reason and energy is bright. Patient is concerned about abdominal weight gain on his medications. I advised him to watch his dietary intake and to exercise. IMPRESSION: Slow progress. Continue present treatment plan. Anticipate discharge on Friday to home.
[2017-10-24 19:50] VITALS: BP 116/72
[2017-10-25 07:50] VITALS: BP 104/66
[2017-10-25 12:24] VITALS: BP 105/55
--- NOTE | 2017-10-25 14:50 | CP SOUTH PROGRESS NOTE PSYCH ---
Psych (Inpt) Progress Note Progress Note Include the following elements, when applicable: Involvement in the active treatment of the patient with behavioral observations of the patient and the patient's response to the treatment. Review of the ongoing treatment process in the context of the treatment plan. Indication of how multi-disciplinary staff members are carrying out the treatment plan. Plans for future interventions and recommendations for revision of the treatment plan. Liaison with other physicians/providers. Progress Note: Case discussed with nursing staff. Nurse reports that the patient is calm. Taking his medications. Makes occasional statements that do not make sense. May have eaten some toothpaste so toothpaste was taken away. Patient seen at 10:23 AM. States he feels better than when he came in. Reports he got about 9 hours of sleep. Appears awake and alert. Reports hand tremor is now reduced. He shows minimal hand tremor. Affect is calm and blunted. I asked him to rate sad mood and he stated he is on a diet so maybe 3/10. Rates anxiety 5/10. Denies feeling hopeless, helpless or worthless. Feels guilty for being here. States he has never had suicidal thoughts. Denies homicidal ideation. Denies auditory and visual hallucinations. When asked if anyone is out to harm him, he responded yes. I asked specifics and he stated "I don't know, I'm not an MD, for all I know, it could be how I landed here." Describes appetite as "3 a day." Rates energy 9/10 with 10 being best. States his current medications are within reason. IMPRESSION: Slow progress. Continue present treatment plan. Anticipate discharge on Friday.
[2017-10-25 16:00] VITALS: BP 136/78
[2017-10-25 19:50] VITALS: BP 133/73
[2017-10-26 07:39] VITALS: BP 113/58
[2017-10-26 12:28] VITALS: BP 124/77
--- NOTE | 2017-10-26 15:25 | CP SOUTH PROGRESS NOTE PSYCH ---
Psych (Inpt) Progress Note Progress Note Include the following elements, when applicable: Involvement in the active treatment of the patient with behavioral observations of the patient and the patient's response to the treatment. Review of the ongoing treatment process in the context of the treatment plan. Indication of how multi-disciplinary staff members are carrying out the treatment plan. Plans for future interventions and recommendations for revision of the treatment plan. Liaison with other physicians/providers. Progress Note: Case discussed with nurse. Nurse reports that the patient remains psychotic. Not aggressive. This morning he went to the refrigerator 3 times and removed milk and dumped it in the sink. Nurse reports he asked the patient if he does this at home, and patient stuck his tongue out and stated "what do you want to tell me?" Patient seen at 10:31 AM. He was resting in bed but got up and met with me in office. Feels better than when he came in, just a little bit drowsy. Appears awake and alert. Affect is calm and blunted to euthymic. Patient is worried if he will be safe on the outside. He is afraid of other people's general attitude. He is not afraid of anyone physically, just their attitude. He states he is not sure what brought him in, and he speculates it was for a medication adjustment. Rates sad mood 3/10 and anxiety 2/10. Denies feeling hopeless, helpless or worthless. Feels guilty that he is here. Denies active and passive suicidal ideation. Denies homicidal ideation. Denies auditory and visual hallucinations. He does feel people are out to harm him, but he is vague as to specifics. Reports he slept 9 hours. Describes appetite as 3 per day. Describes energy as bright and energetic. Tolerating medications at 3/10 with 10 being worst. Patient seems to be looking forward to discharge tomorrow. IMPRESSION: Slow progress. Continue present treatment plan. Anticipate discharge tomorrow.
[2017-10-26 16:01] VITALS: BP 108/67
[2017-10-26 19:49] VITALS: BP 123/78
[2017-10-27 07:39] VITALS: BP 138/77
[2017-10-27] MEDS ORDERED: DIVALPROEX SOD250 M2 PO (10:43)
[2017-10-27] MEDS ORDERED: OLANZAPINE20 M1 PO (10:43)
[2017-10-27] MEDS ORDERED: OLANZAPINE10 M1 PO (10:43)
--- NOTE | 2017-10-27 10:50 | Patient Discharge Instructions ---
Psych Discharge Inst General Discharge Information Reason for Admission: Acute psychosis and threatening. Psy Discharge Primary Diag+ Schizophrenia Psy Discharge Secondary Diag+ Hx seizures Hx hypertension Hx chronic abd pain Hx Rob's thrditis Hypothyroidism Hx diabetes Summary Tests/Major Procedures Lab ALT 32 U/L 10/16/17 1643 AST 16 U/L L 10/16/17 1643 Amylase 81 U/L 10/16/17 1643 BUN 16 mg/dL 10/16/17 1643 Carbon Dioxide 27 mmol/L 10/16/17 1643 Chloride 100 mmol/L 10/16/17 1643 Cholesterol 152 MG/DL 10/16/17 1643 Cholesterol/HDL Ratio 3 % 10/16/17 1643 Creatinine 1.1 mg/dL 10/16/17 1643 Estimated GFR > 60 ml/min 10/16/17 1643 Glucose 129 mg/dL H 10/16/17 1643 HDL Cholesterol 57 mg/dL 10/16/17 1643 Hemoglobin A1c 5.6 % 10/16/17 1643 LDL Cholesterol, Calc 71 mg/dL 10/16/17 1643 Potassium 4.8 mmol/L 10/16/17 1643 Sodium 139 mmol/L 10/16/17 1643 TSH &T3 &Free T4 Intrp 3.560 uIU/mL 10/16/17 1643 Triglycerides 121 mg/dL 10/16/17 1643 Absolute Monocytes 0.8 /CUMM H 10/16/17 1643 Hct 43.5 % 10/16/17 1643 Hgb 14.9 G/DL 10/16/17 1643 MCH 31.7 PG H 10/16/17 1643 Monocytes % 11.4 % H 10/16/17 1643 Plt Count 215 /CUMM 10/16/17 1643 WBC 7.3 /CUMM 10/16/17 1643 Lab Valproic Acid < 10.0 ug/mL L 10/16/17 1643 Valproic Acid 67.5 ug/mL 10/20/17 0641 Studies Pending at [place]: None. Patient Instructions Contact Information Your Psychiatrist on [facility] was Estevan Leiva MD * If you are experiencing an emergency related to this hospitalization, please call [phone] to contact the treating psychiatrist or the psychiatrist-on- call. * To Request a copy of your medical records, please contact the Medical Records Department at [phone]. * To request results of studies pending at the time of discharge, please call [phone]. * Continue your Medications until directed to stop by your Healthcare provider. General Medication Information Please continue to take your new medications and your continued home medications , unless otherwise indicated on your discharge medication list, or unless directed by your MD or UI SOFTWARE ENGINEER to stop them. Special Instructions Diet Regular Activity Normal Other Inst/Recommendations Please see PCP about medical condx's listed above. - Tobacco Use Treatment Offered Post DC Medications Offered: Not Applicable Post DC Tobacco Treatment Plan: Not Applicable - EtOH/Drug Use D/O Treatment Offered Post DC Medications Offered: NA-No EtOH/Drug Use D/O Post DC EtOH/SubAbuse [place] Plan: NA-No EtOH/Drug Use D/O Metabolic Screening () Not Applicable, patient not on a neuroleptic. OR () Patient on a neuroleptic(s) . Enter below results for Hemoglobin A1C, and lipid panel if obtained during the last 365 days. BMI: 25.700 Blood Pressure: 138/77 Laboratory Results From [facility] (If applicable): [x] Lab Cholesterol 152 MG/DL 10/16/17 1643 Cholesterol/HDL Ratio 3 % 10/16/17 1643 HDL Cholesterol 57 mg/dL 10/16/17 1643 Hemoglobin A1c 5.6 % 10/16/17 1643 LDL Cholesterol, Calc 71 mg/dL 10/16/17 1643 Triglycerides 121 mg/dL 10/16/17 1643 Advance Directives Does the Patient have Medical Advance Directives No/Refused further info Does Pt have Psychiatric Advance Directives? No/Refused further info Does Patient have a Designated Surrogate Decision Maker: No Information About Psychiatric Advance Directives Provided? Refused Discharge Plan Post Hospital Treatment Plan: Returning to home. Follow up at [facility].
--- NOTE | 2017-10-27 11:50 | SOCIAL WORKER PROG NOTE PSYCH ---
Social Work Progress Note Progress Note Called [facility] again and left another message for Manjeet Angelo (therapist). Called [facility] [employer] to schedule transportation for Micah to return home to [place]. He has watters in his belongings to pay the cab. oJe met with Dr. Leiva and I. He reports feeling better than when he came to the hospital. Says he is drowsy, but other than that feels "normal." Denies any SI/HI. Mood is stable. Denies any sadness and minimal anxiety. Denies feeling hopeless, helpless, or worthless. Feels guilty- when asked why? Says "no one is listening to me on the outside." Not sure what he means by that statement. He is ready to go home today. I told him he has a ride scheduled for 1pm. Told him that I've attepted to set up a meeting with his therapist, but have not been able to get a hold of him. Encouraged him to give him a call.
[2017-10-27 12:19] VITALS: BP 143/70
--- NOTE | 2017-10-27 13:45 | SOCIAL WORKER PROG NOTE PSYCH ---
Social Work Progress Note Faxed Referral(s) Referred To: [facility] Transition of Care Documents sent: Health Summary Faxed to: [facility] Fax #: [phone] Faxed by: Keisha Damon Date faxed: 10/27/17 Time Faxed: [phone]
--- NOTE | 2017-10-27 15:02 | CP SOUTH PROGRESS NOTE PSYCH ---
Psych (Inpt) Progress Note Progress Note Include the following elements, when applicable: Involvement in the active treatment of the patient with behavioral observations of the patient and the patient's response to the treatment. Review of the ongoing treatment process in the context of the treatment plan. Indication of how multi-disciplinary staff members are carrying out the treatment plan. Plans for future interventions and recommendations for revision of the treatment plan. Liaison with other physicians/providers. Progress Note: Case and treatment plan discussed in team meeting. Staff reports that the patient still makes statements that do not make sense. Oddly-related. Tangential. Redirectable. Patient has an appointment with his outpatient EATING DISORDER PSYCHOLOGIST, Nilsa Ahmadi, on 11/11/17. Patient seen at 11:40 AM was social human services assistants, Keisha. Patient reports feeling better than when he came in. States that other than being drowsy, he feels normal. Appears awake and alert. Affect is calm and blunted. Reports mood is stable for today. Rates sad mood 0/10 and anxiety 1/10. Denies feeling hopeless. Denies feeling helpless, stating "not today. Denies feeling worthless. Reports he feels guilty because "no one is listening to me on the outside." Denies auditory and visual hallucinations. I asked if he feels that anyone is out to harm him, and he responded "I wouldn't know." Reports he slept 9 hours. Describes appetite as 3 a day. Reports he is energetic. Tolerating medications but said "see these bags under my eyes." Feels ready and safe for discharge. Patient was advised to follow-up with his dentist about his dental concern. IMPRESSION: Condition improved. Okay for discharge today to home with follow up at [facility].
--- NOTE | 2017-10-27 15:08 | DISCHARGE SUMMARY REPORT-PSYCH ---
Visit Information Visit Dates/Diagnosis' Admission Date: 10/17/17 Discharge Date: 10/27/17 Reason for Admission: Acute psychosis and threatening. Psy Discharge Primary Diag: Schizophrenia Psy Discharge Secondary Diag: Hx seizures Hx hypertension Hx chronic abd pain Hx Rob's thrditis Hypothyroidism Hx diabetes Hospital Course Significant Lab Findings: Lab ALT 32 U/L 10/16/17 1643 AST 16 U/L L 10/16/17 1643 Amylase 81 U/L 10/16/17 1643 BUN 16 mg/dL 10/16/17 1643 Carbon Dioxide 27 mmol/L 10/16/17 1643 Chloride 100 mmol/L 10/16/17 1643 Cholesterol 152 MG/DL 10/16/17 1643 Cholesterol/HDL Ratio 3 % 10/16/17 1643 Creatinine 1.1 mg/dL 10/16/17 1643 Estimated GFR > 60 ml/min 10/16/17 1643 Glucose 129 mg/dL H 10/16/17 1643 HDL Cholesterol 57 mg/dL 10/16/17 1643 Hemoglobin A1c 5.6 % 10/16/17 1643 LDL Cholesterol, Calc 71 mg/dL 10/16/17 1643 Potassium 4.8 mmol/L 10/16/17 1643 Sodium 139 mmol/L 10/16/17 1643 TSH &T3 &Free T4 Intrp 3.560 uIU/mL 10/16/17 1643 Triglycerides 121 mg/dL 10/16/17 1643 Absolute Monocytes 0.8 /CUMM H 10/16/17 1643 Hct 43.5 % 10/16/17 1643 Hgb 14.9 G/DL 10/16/17 1643 MCH 31.7 PG H 10/16/17 1643 Monocytes % 11.4 % H 10/16/17 1643 Plt Count 215 /CUMM 10/16/17 1643 WBC 7.3 /CUMM 10/16/17 1643 Lab Valproic Acid < 10.0 ug/mL L 10/16/17 1643 Valproic Acid 67.5 ug/mL 10/20/17 0641 Course Complications: None. Consultations: Dr. Lawson did admission H&P on 10/18/17 and noted: "Assessment: 47-year-old male with history of bipolar disorder admitted to the inpatient psychiatric service due to increased symptoms of psychosis. Currently, but remains with disorganized thoughts. He has a left cheek swelling which he states is chronic for which she has seen a dentist in the past. He is unsure what he was diagnosed with. On current evaluation there is no evidence of an acute infectious process. Recommendations: -Recommend that at the time of discharge patient should be provided with an appointment to see a dentist. -Continue management as directed by the psychiatry service. - Please reconsult the medical team as needed." Allergies: Coded Allergies: fluphenazine (DECREASES THRESHOLD FOR SEIZURES PER AN MD 10/22/16) haloperidol (SOB 10/22/16) olanzapine (PER PT EATS TOO MUCH 10/17/17) Hospital Course/TX Response: The patient was monitored on the unit for psychosis and mood disturbance. He participated in multimodal treatments on the unit. During this hospital stay, Depakote dose was increased to 750 mg twice daily and olanzapine dose was increased from 5 mg in the morning and 20 mg at night to 10 mg in the morning and 20 mg at night. Patient continues to display thought disorder but it has improved somewhat. He has been cooperative and medication-compliant. Progress note from date of discharge, 10/27/17: "Case and treatment plan discussed in team meeting. Staff reports that the patient still makes statements that do not make sense. Oddly-related. Tangential. Redirectable. Patient has an appointment with his outpatient CITY MAIL CARRIER, Nilsa Ahmadi, on 11/11/17. Patient seen at 11:40 AM was social services analyst, Keisha. Patient reports feeling better than when he came in. States that other than being drowsy, he feels normal. Appears awake and alert. Affect is calm and blunted. Reports mood is stable for today. Rates sad mood 0/10 and anxiety 1/10. Denies feeling hopeless. Denies feeling helpless, stating "not today. Denies feeling worthless. Reports he feels guilty because "no one is listening to me on the outside." Denies auditory and visual hallucinations. I asked if he feels that anyone is out to harm him, and he responded "I wouldn't know." Reports he slept 9 hours. Describes appetite as 3 a day. Reports he is energetic. Tolerating medications but said "see these bags under my eyes." Feels ready and safe for discharge. Patient was advised to follow-up with his dentist about his dental concern. IMPRESSION: Condition improved. Okay for discharge today to home with follow up at [facility]. " Discharge HBIPS - Tobacco Use Treatment Offered Post DC Medications Offered: Not Applicable Post DC Tobacco Treatment Plan: Not Applicable - EtOH/Drug Use D/O Treatment Offered Post DC Medications Offered: NA-No EtOH/Drug Use D/O Post DC EtOH/SubAbuse [place] Plan: NA-No EtOH/Drug Use D/O Metabolic Screening - Screen if on a Neuroleptic Medication - Metabolic screening should include: - Blood Pressure, BMI, Glucose or Hgb A1c, & a - Lipid profile from within the past 365 days. Metabolic Screening () Not Applicable, patient not on a neuroleptic. OR () Patient on a neuroleptic(s) . Enter below results for Hemoglobin A1C, and lipid panel if obtained during the last 365 days. BMI: 25.700 Blood Pressure: 143/70 Laboratory Results From [facility] (If applicable): [x] Lab Cholesterol 152 MG/DL 10/16/17 1643 Cholesterol/HDL Ratio 3 % 10/16/17 1643 HDL Cholesterol 57 mg/dL 10/16/17 1643 Hemoglobin A1c 5.6 % 10/16/17 1643 LDL Cholesterol, Calc 71 mg/dL 10/16/17 1643 Triglycerides 121 mg/dL 10/16/17 1643 Discharge Instructions General Discharge Information Multiple Neuroleptics: ([x]) Not Applicable OR Document below three failed attempts at monotherapy, or a plan to taper to monotherapy, or augmentation of Clozapine. () Discharge Diet Regular Discharge Activity Normal DC Disposition: Returning to home. Referrals Ordered Referrals Provider Referral 11/11/17 For Groups: [[facility] Appt. with Nilsa Ahmadi APRN 11/11/17 12pm [address] [place] [phone] Call Manjeet Angelo -therapist to schedule an appt. Prescriptions Stop taking the following medications: Divalproex Sodium (Depakote) 500 MG TABLET. ORAL TWICE DAILY Qty = 60 Olanzapine (Olanzapine) 5 MG TABLET ORAL TAKE AT BEDTIME Qty = 30 Continue taking these medications: Levothyroxine Sodium (Levothyroxine Sodium) 150 MCG TABLET 1 Tablet ORAL 0600 Qty = 30 Comments: Last Taken:10/27/17 Time:0700 Start taking the following new medications: Divalproex Sodium (Divalproex Sodium) 250 MG TABLET.DR 3 Tablet ORAL TWICE DAILY Qty = 84 No Refills Comments: Last Taken:10/27/17 Time:0800 Olanzapine (Olanzapine) 10 MG TABLET 1 Tablet ORAL DAILY @8 AM Qty = 14 No Refills Comments: Last Taken:10/27/17 Time:0800 The following medications have been changed: Old: Olanzapine (Olanzapine) 20 MG TABLET 1 Tablet ORAL TAKE AT BEDTIME Qty = 30 New: Olanzapine (Olanzapine) 20 MG TABLET 1 Tablet ORAL TAKE AT BEDTIME Qty = 14 Comments: Last Taken:10/26/17 Time:2200 Other Inst/Recommendations Please see PCP about medical condx's listed above. Studies Pending at Discharge None. Copies To: Nilsa Ahmadi APRN
== END 2017-10-27 13:25 | DRG 885 ==
LOC: ERH 15:26 → ERHI 10-17 11:32 → CP SOUTH 10-17 11:32 → ENTRNSPT 10-17 15:37 → EDTRNSPTSTS 10-17 15:43 → EDTRNSPT 10-17 15:43 → CP SOUTH 10-17 16:00 → ENRESERV 10-17 16:00 → CMPTRNSPT 10-17 16:00 → CP SOUTH 10-17 17:10 → ENRESERV 10-17 23:59 → CANRESERV 10-17 23:59 → CP SOUTH 10-23 19:28
PROVIDERS: Physician Assistant
DX: F20.9 Schizophrenia, unspecified (principal); R56.9 Unspecified convulsions; E06.3 Autoimmune thyroiditis; E11.9 Type 2 diabetes mellitus without complications; I10 Essential (primary) hypertension
CPT/HCPCS: 36415; 80307; G0463; G0480